=== PATIENT | male | born 1945 | race Caucasian/White ===

== ENCOUNTER → 2018-03-28 11:38 | Outpatient (CLI) | payer OTHER, SELFPAY ==
[2018-03-28 14:29] LABS: AST(SGOT) 22 U/L (15-37); Alanine Aminotransfer ALT/SGPT 29 U/L (16-61); Albumin, Serum 3.9 g/dL (3.2-5.0); Alkaline Phosphatase 241 U/L (45-117); Bilirubin, Direct 0.17 mg/dL (0.00-0.30); Cholesterol 183 mg/dL (200); Globulin 2.9 g/dL (2.2-4.2); High Density Lipoprotein 46 mg/dL; PSA,Total - Annual Screen 1.52 ng/mL (0.00-4.00); Protein, Total 6.8 g/dL (6.4-8.2); Triglycerides 162 mg/dL; Uric Acid 6.4 mg/dL (3.5-7.2); Very Low Density Lipoprotein 32 mg/dL (5-40)
== END ==
PROVIDERS: Family Provider Family Medicine; PCP Family Medicine; Referring Provider Family Medicine; Visit Provider Family Medicine
DX: E78.5 Hyperlipidemia, unspecified (principal); Z12.5 Encounter for screening for malignant neoplasm of prostate; M10.9 Gout, unspecified
CPT/HCPCS: 36415; 80061; 80076; 84153; 84550; G0103

== ENCOUNTER → 2018-08-20 08:10 | Outpatient (CLI) | payer OTHER, SELFPAY ==
[2018-08-20 08:06] VITALS: BMI 24.4
--- NOTE | 2018-08-20 08:11 | RAD_ITS ---
STUDY: X-RAY - RIGHT KNEE REASON FOR EXAM: Male, 72 years old. Pain TECHNIQUE: 4 view(s) of the knee. COMPARISON: None. FINDINGS: Normal visualized distal femur. Normal visualized proximal tibia and fibula. Normal proximal tibiofibular articulation. There is mild degenerative arthrosis of the medial femorotibial compartment. There is mild degenerative arthrosis of the lateral femorotibial compartment. There is mild degenerative arthrosis of the patellofemoral articulation. The soft tissue structures are unremarkable. RAD/Knee 4 or More Views IMPRESSION: Degenerative arthrosis. Electronically Signed: Blaine Carrero MD at 12:58 EDT , Service support ,
== END ==
PROVIDERS: Family Provider Family Medicine; PCP Family Medicine; Referring Provider Orthopaedic Surgery; Visit Provider Orthopaedic Surgery
DX: M25.561 Pain in right knee (principal)
CPT/HCPCS: 73564

== ENCOUNTER → 2019-04-12 07:00 | Outpatient (CLI) | payer OTHER, SELFPAY ==
[2018-08-20 08:06] VITALS: BMI 24.4
[2019-04-12 10:50] LABS: ALB/GLOB Ratio 1.2 RATIO (0.9-2.4); AST(SGOT) 29 U/L (15-37); Alanine Aminotransfer ALT/SGPT 32 U/L (16-61); Albumin, Serum 3.8 g/dL (3.2-5.0); Alkaline Phosphatase 232 U/L (45-117); Anion Gap 7 (5-15); BUN 16 mg/dL (7-18); BUN/Creat Ratio 16.5 RATIO (10-20); Calcium,Total 9.2 mg/dL (8.5-10.1); Chloride 107 mmol/L (98-107); Cholesterol 167 mg/dL (200); Creatinine, Serum 0.97 mg/dL (0.70-1.30); EST Glomerular Filtration Rate 81 mL/min (>60); Est Glom Filt Rate - Afr Amer 98 mL/min (>60); Globulin 3.3 g/dL (2.2-4.2); Glucose 89 mg/dL (74-106); High Density Lipoprotein 47 mg/dL; PSA,Total - Annual Screen 1.39 ng/mL (0.00-4.00); Phosphorus 2.5 mg/dL (2.5-4.9); Potassium 4.3 mmol/L (3.5-5.1); Protein, Total 7.1 g/dL (6.4-8.2); Sodium Level 142 mmol/L (136-145); Triglycerides 136 mg/dL; Uric Acid 6.9 mg/dL (3.5-7.2); Very Low Density Lipoprotein 27 mg/dL (5-40)
[2019-04-12 10:51] LABS: PTHIN 80.3 pg/mL (18.4-80.1); Vitamin D,25 Hydroxy 26.8 ng/mL (29.95-100.01)
== END ==
PROVIDERS: Family Provider Family Medicine; PCP Family Medicine; Referring Provider Family Medicine; Visit Provider Family Medicine
DX: E78.5 Hyperlipidemia, unspecified (principal); M10.9 Gout, unspecified; Z12.5 Encounter for screening for malignant neoplasm of prostate; M88.9 Osteitis deformans of unspecified bone
CPT/HCPCS: 36415; 80053; 80061; 82306; 82330; 83970; 84100; 84153; 84550; G0103

== ENCOUNTER → 2019-08-01 12:52 | Outpatient (CLI) | payer OTHER, SELFPAY ==
[2018-08-20 08:06] VITALS: BMI 24.4
--- NOTE | 2019-08-01 13:01 | BD_ITS ---
STUDY: DUAL ENERGY X-RAY ABSORPTIOMETRY / DXA REASON FOR EXAM: Male, 73 years old. Pat is 186# and 5 and quot;11 and quot; a loss of .5 and quot; per pat. Past hx of smoking. Exercises a lot. Hx of paget''s dx. TECHNIQUE: Bone Mineral Density (BMD) measurements of lumbar spine and bilateral hips were obtained. COMPARISON: None. FINDINGS: Lumbar Spine (L1-L4): g/cm2 (1.312) / T-score (0.8) / Z-score (1.3) Findings are suggestive of normal bone density with a low fracture risk. Left Femur Total: g/cm2 (0.933) / T-score (-1.2) / Z-score (-0.4) Left Femoral Neck: g/cm2 (0.890) / T-score (-1.4) / Z-score (-0.1) Right Femur Total: g/cm2 (0.900) / T-score (-1.4) / Z-score (-0.6) Right Femoral Neck: g/cm2 (0.859) / T-score (-1.6) / Z-score (-0.3) BD/Dexa Bone Density Study IMPRESSION: The patient is considered osteopenic as outlined below according to World Sadi Organization (WHO) criteria with a moderate fracture risk. Reference Information: The T-score is the number of standard deviations above or below the standard which is normal for young adults at their peak bone mineral density. The World Health Organization (WHO) interprets the T-scores as follows: Above -1 Normal bone density Between -1 and -2.5 Osteopenia Equal to / or below -2.5 Osteoporosis As a practical clinical guideline, osteopenia may be graded as follows: Mild -1 through -1.5 Moderate -1.6 through -2.0 Severe -2.1 through -2.4 The Z-score is the number of standard deviations above or below age-matched controls. A Z-score of less than -1.5 would be considered abnormal. References: 1. NIH Osteoporosis and Related Bone Diseases http://www.osteo.org 2. International Society for Clinical Densitometry http://www.iscd.org 3. National Osteoporosis Foundation http://www.nof.org Electronically Signed: Jose Romeo, at 15:44 EST , Service support ,
== END ==
PROVIDERS: PCP Family Medicine; Referring Provider Family Medicine; Visit Provider Family Medicine
DX: M88.9 Osteitis deformans of unspecified bone (principal)
CPT/HCPCS: 77080

== ENCOUNTER → 2019-11-19 07:03 | Outpatient (CLI) | payer OTHER, SELFPAY ==
[2018-08-20 08:06] VITALS: BMI 24.4
[2019-11-19 10:24] LABS: ALB/GLOB Ratio 1.1 RATIO (0.9-2.4); AST(SGOT) 26 U/L (15-37); Alanine Aminotransfer ALT/SGPT 28 U/L (16-61); Albumin, Serum 3.5 g/dL (3.2-5.0); Alkaline Phosphatase 205 U/L (45-117); Anion Gap 4 (5-15); BUN 13 mg/dL (7-18); BUN/Creat Ratio 12.4 RATIO (10-20); Calcium,Total 9.7 mg/dL (8.5-10.1); Chloride 106 mmol/L (98-107); Creatinine, Serum 1.05 mg/dL (0.70-1.30); EST Glomerular Filtration Rate 74 mL/min (>60); Est Glom Filt Rate - Afr Amer 89 mL/min (>60); Globulin 3.3 g/dL (2.2-4.2); Glucose 128 mg/dL (74-106); Phosphorus 2.3 mg/dL (2.5-4.9); Potassium 3.9 mmol/L (3.5-5.1); Protein, Total 6.8 g/dL (6.4-8.2); Sodium Level 140 mmol/L (136-145)
[2019-11-19 10:25] LABS: Vitamin D,25 Hydroxy 43.8 ng/mL
== END ==
PROVIDERS: PCP Family Medicine; Referring Provider Family Medicine; Visit Provider Family Medicine
DX: M88.9 Osteitis deformans of unspecified bone (principal)
CPT/HCPCS: 36415; 80053; 82306; 82330; 84100

== ENCOUNTER → 2020-04-15 08:16 | Outpatient (CLI) | payer OTHER, SELFPAY ==
[2020-03-20 09:22] VITALS: BMI 25.2
[2020-04-15 10:57] LABS: ALB/GLOB Ratio 1.2 RATIO (0.9-2.4); AST(SGOT) 30 U/L (15-37); Alanine Aminotransfer ALT/SGPT 31 U/L (16-61); Albumin, Serum 3.7 g/dL (3.2-5.0); Alkaline Phosphatase 229 U/L (45-117); Anion Gap 3 (5-15); BUN 17 mg/dL (7-18); Calcium,Total 9.5 mg/dL (8.5-10.1); Chloride 105 mmol/L (98-107); Cholesterol 160 mg/dL (200); EST Glomerular Filtration Rate 78 mL/min (>60); Est Glom Filt Rate - Afr Amer 94 mL/min (>60); Globulin 3.2 g/dL (2.2-4.2); Glucose 99 mg/dL (74-106); High Density Lipoprotein 50 mg/dL; Potassium 4.5 mmol/L (3.5-5.1); Protein, Total 6.9 g/dL (6.4-8.2); Sodium Level 138 mmol/L (136-145); Triglycerides 112 mg/dL; Very Low Density Lipoprotein 22 mg/dL (5-40)
== END ==
PROVIDERS: PCP Family Medicine; Referring Provider Family Medicine; Visit Provider Family Medicine
DX: E78.5 Hyperlipidemia, unspecified (principal); M10.9 Gout, unspecified
CPT/HCPCS: 36415; 80053; 80061; 84550

== ENCOUNTER 2020-10-08 16:34 | Emergency (ER) | payer OTHER, SELFPAY ==
[2020-03-20 09:22] VITALS: BMI 25.2
[2020-10-08 16:36] VITALS: BP 175/95; PULSE 65; RESP 14; TEMP 36.2; O2SAT 99; BMI 23.7
--- NOTE | 2020-10-08 17:50 | EDS_ITS ---
HPI History of Present Illness Chief Complaint: Eye Problem Informant: patient Onset/Context/Timing Location: Left Eye Onset: Days Context: Gradual Onset Timing: Continuous Current Severity: Moderate Maximum Severity: Moderate Associated Symptoms History of injury: No Narrative Narrative: The patient is a 74-year-old male with medical history significant for osteopenia who presents to the emergency department with almost complete vision loss in his left eye. He states is been going on for 2 weeks. He was actually seen at ophthalmology today. He was evaluated by Dr. Dinh we spoke with our phone. He states that his exam is consistent with temporal arteritis. He did send him over for IV steroids and lab work. He did not feel that he needs imaging. Prior similar symptoms: No Recent Illness/Hospitalization: No PFSH [facility] Medical History Dupuytren's contracture Hyperlipidemia Paget's bone disease Home Medications allopurinol 100 mg tablet 100 mg PO DAILY 08/20/18 [History Last Taken Unknown] atorvastatin 10 mg tablet 10 mg PO DAILY 03/20/20 [History Last Taken Unknown] prednisone 60 mg PO DAILY #15 tablet 10/08/20 [Rx Last Taken Unknown] Allergy/AdvReac Type Severity Reaction Status Date / Time No Known Allergies Allergy Unverified 03/20/20 09:22 Social History Smoking Status: Never smoker alcohol intake: current details: social substance use type: does not use what type of physical activity do you participate in: running frequency: daily ROS ROS ED Constitutional Constitutional ED: Denies chills or fever(s) Eyes Eyes: Reports change in vision ENT ENT ED: Denies ear pain or sore throat Cardiovascular Cardiovascular: Denies chest pain or palpitations Respiratory/Chest Respiratory/Chest: Denies cough, dyspnea or dyspnea on exertion Gastrointestinal Gastrointestinal: Denies abdominal pain, nausea or vomiting Genitourinary Genitourinary ED: Denies dysuria or urinary frequency Musculoskeletal Musculoskeletal: Denies arthralgias or myalgias Integumentary Denies rash Neurologic Neurologic: Denies headache(s) or paresthesias Psychiatric Psychiatric: Denies anxiety or depression Endocrine Endocrinology: Denies polydipsia or polyuria Allergic/Immunologic Allergic/Immunologic ED: Denies urticaria EXAM Physical Exam Const Vital Signs: 10/08/20 16:36 Temperature 97.2 F L Temperature Source Temporal Pulse Rate 65 Respiratory Rate 14 Blood Pressure 175/95 H Blood Pressure Mean 121 Pulse Ox 99 Oxygen Delivery Method Room Air Positive well nourished and well developed General Appearance ED: well developed HEENT Reports normocephalic, head/scalp atraumatic and moist mucous membranes Eyes PERRL and EOMs intact bilaterally Visual Acuity: visual acuity left eye Visual Field: peripheral vision loss and central vision loss Neck no lymphadenopathy and supple General: Negative for tenderness Chest Wall inspection of chest normal Resp normal respiratory effort and clear to auscultation bilaterally Cardio regular rate, regular rhythm and no murmurs GI normal to inspection, nondistended, normoactive bowel sounds Palpation: Negative for tender, guarding or rebound tenderness present Back/Spine no CVA tenderness Cervical Spine: Negative for cervical spine tenderness Thoracic Spine / Upper Back: Negative for thoracic spinal tenderness Extremity normal to inspection General Extremety ED: Negative for tenderness Neuro oriented x3 and CN's II-XII intact bilaterally Neuro Narrative: No focal deficits appreciated. Sensorium / Orientation: alert Psych mental status grossly normal Skin no rashes or lesions noted, no wounds and skin turgor normal MDM MDM MDM Narrative Medical decision making narrative: The patient presents due to concern for temporal arteritis. I have discussed his case with ophthalmology prior to his arrival. IV was established. Patient was immediately treated with 1 g of Solu- Medrol. ESR is not significantly elevated, but his CRP is elevated. I did discuss his results with Dr. Dinh. The plan is to keep the patient on 60 mg of prednisone. He is going to be seen in the office on Monday to start his taper and further work-up. I did senior counsel him that if his vision in his right eye changes had all that he should return immediately. The patient is comfortable with this plan of care. Impression 1. Temporal arteritis Lab Data Attestation: I reviewed the patient's lab results. Discharge Plan Triage Chief Complaint: Eye Problem ED Provider: Jann Avalos Dx/Rx/DC Orders Instructions: ED Temporal Arteritis Prescriptions: New prednisone 20 MG tablet 60 mg PO DAILY Qty: 15 RF: 0 No Action allopurinol 100 mg tablet 100 mg PO DAILY RF: 0 atorvastatin 10 mg tablet 10 mg PO DAILY RF: 0 Primary Care Provider: Ted Kwan Referrals: Ted Kwan MD [Primary Care Provider] - Giovany Dinh MD [STAFF PHYSICIAN] - 3-5 Days
[2020-10-08 18:37] VITALS: BP 137/77
[2020-10-08 18:39] LABS: Absolute Lymphocyte Count 0.87 X10^3/uL (0.83-4.51); Absolute Neutrophil Count 4.5 X10^3/uL (2.0-7.7); Basophil# 0.04 X10^3/uL; Basophil% 0.7 % (0-1); Eosinophil# 0.21 X10^3/uL; Eosinophils% 3.4 % (0-5); Hematocrit 40.9 % (40-54); Lymphocyte # 0.87 X10^3/ul (0.83-4.51); Lymphocyte % 14.2 % (19-41); Mean Corp Hgb Conc 31.8 g/dL (32-36); Mean Corpuscular Hgb 28.4 pg (27.0-32.0); Mean Corpuscular Volume 89.3 fL (80-94); Mean Platelet Vol. 10.3 fl (6.2-12.0); Monocyte# 0.52 X10^3/uL; Monocyte% 8.5 % (0-10); NRBC Flagged by Analyzer 0 % (0-5); Neutrophil # 4.47 X10^3/uL (2.7-7.7); Neutrophil % 72.9 % (47-70); Platelet Count 352 K/mm3 (150-450); RBC Distribution Width CV 12.7 % (11.6-14.6); RBC Distribution Width SD 41.5 fl (35.1-43.9); Red Blood Count 4.58 M/mm3 (4.6-6.2); White Blood Count 6.1 K/mm3 (4.4-11.0)
[2020-10-08 18:42] LABS: POSITIVE COUNT NO; POSITIVE DIFFERENTIAL NO; POSITIVE MORPHOLOGY NO
[2020-10-08 18:51] LABS: Erythrocyte Sedimentation Rate 17 mm/hr (0-20)
[2020-10-08 19:11] LABS: ALB/GLOB Ratio 0.7 RATIO (0.9-2.4); AST(SGOT) 17 U/L (15-37); Alanine Aminotransfer ALT/SGPT 19 U/L (16-61); Albumin, Serum 3.2 g/dL (3.2-5.0); Alkaline Phosphatase 183 U/L (45-117); Anion Gap 5 (5-15); BUN 14 mg/dL (7-18); BUN/Creat Ratio 16.5 RATIO (10-20); Calcium,Total 10.3 mg/dL (8.5-10.1); Chloride 103 mmol/L (98-107); Creatinine, Serum 0.85 mg/dL (0.70-1.30); EST Glomerular Filtration Rate 94 mL/min (>60); Est Glom Filt Rate - Afr Amer 113 mL/min (>60); Estimated Creatinine Clearance 84.95 ml/min; Globulin 4.3 g/dL (2.2-4.2); Glucose 85 mg/dL (74-106); Protein, Total 7.5 g/dL (6.4-8.2); Sodium Level 138 mmol/L (136-145)
== END 2020-10-08 19:54 | disposition home or self-care (01) ==
LOC: ED 18:18
PROVIDERS: Emergency Provider Emergency Medicine; PCP Family Medicine
DX: M31.6 Other giant cell arteritis (principal); M85.80 Other specified disorders of bone density and structure, unspecified site; E78.5 Hyperlipidemia, unspecified; M88.9 Osteitis deformans of unspecified bone; M72.0 Palmar fascial fibromatosis [Dupuytren]; Z79.52 Long term (current) use of systemic steroids; Z79.899 Other long term (current) drug therapy
CPT/HCPCS: 80053; 85025; 85652; 86140; 96365; 96366; 99283; J7050; A4216; J2930

== ENCOUNTER 2020-10-14 06:26 | Day surgery (SDC) | payer OTHER, SELFPAY ==
[2020-10-12 09:14] VITALS: BMI 23.7
--- NOTE | 2020-10-14 | TEM_PTH ---
PATIENT: SCOUT LEE LOC: [facility] [place] U#:[id number] AGE/SX: 75/M ROOM: RE10/14/[address]: Dr. Scooter Waite MD : 1945 BED: DIS: 10/14/2020 SPEC #: [id number] RECD: 10/14/20 12:51 STATUS: ELSA LAKESHIA #: [id number] RAVI: 10/14/20 00:[address]: Scooter Waite DEPT: SURGICAL PATHOLOGY RECD BY: Al Damon ENTERED: 10/14/20 12:53 SP TYPE: TEMPORAL OTHR DR: Dr. Diaz Kwan MD Tissues: Temporal region Procedures: Elastin Stain (control) Special Stain Group II Surgery Specimen Level IV HEADER OPERATION: Temporal artery biopsy PRE-OP DIAGNOSIS: Vision loss of left eye TISSUE SUBMITTED: Left temporal artery biopsy MICROSCOPIC DIAGNOSIS Left temporal artery, biopsy: Focal minimal changes consistent with giant cell arteritis. See microscopic description and comment. GARFIELD:chuy 10/15/2020 COMMENT The reports are reported to Dr. Waite?s office on 10/15/2020 at 10:55 a.m. Clinical correlation and appropriate follow up are necessary. MICROSCOPIC DESCRIPTION Slides are reviewed. The specimen shows medium sized blood vessels with focal minimal chronic inflammatory cell infiltrates involving intima of the vessels consisting predominantly on lymphocytes. Elastic stain with matched control is used in the evaluation of the specimen. GROSS DESCRIPTION Received in fixative is one container labeled with the patient's name and designated left temporal artery biopsy. The specimen consists of a tubular piece of fischer soft tissue measuring 2.5 cm in length and 0.2 cm in diameter. The entire specimen is submitted in one cassette. It will be sectioned at the time of embedding. / GARFIELD:chuy 10/14/20 TC:3 CPT: 02933, 19640
--- NOTE | 2020-10-14 06:30 | PCM.HP.BLA ---
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 Accompanied by: Self Is patient in pain?: No Allergies No Known Allergies Allergy (Verified 10/12/20 09:16) Medications allopurinol 100 mg tablet 100 mg PO DAILY 08/20/18 [History Confirmed 10/12/20] atorvastatin 10 mg tablet 10 mg PO DAILY 03/20/20 [History Confirmed 10/12/20] prednisone 60 mg PO DAILY #15 tablet 10/08/20 [Rx Confirmed 10/12/20] PFSH Medical History (Updated 10/12/20 @ 09:13 by Sandra Feng) Dupuytren's contracture Gout Hyperlipidemia Paget's bone disease Vision loss of left eye Surgical History (Updated 10/12/20 @ 09:13 by Sandra Feng) Hx of colonoscopy Family History Other Adopted Social History (Updated 10/12/20 @ 09:14 by Sandra Feng) adopted: Yes Smoking Status: Former smoker alcohol intake: current alcohol intake frequency: a few times a week details: social substance use type: does not use caffeine: Yes what type of physical activity do you participate in: running frequency: daily HPI HPI HPI: SCOUT LEE, is a 74 M who presents to the office today for loss of vision of the thigh. The patient reports that he started having loss of vision in his left eye and pain on the left side of his jaw with chewing as well as a headache. The patient was seen by ophthalmology and went to the emergency room and was started on steroids. The patient reports improvement in his headaches and chewing pain but he is still has loss of vision on the left side. ROS General General: No weight change, appetite, fatigue, colon cancer, breast cancer or weakness HEENT HEENT: No difficulty swallowing, eye injury, eye surgery, swollen glands or hoarseness Additional Details: Loss of vision in the left eye Endo Endocrine: No thyroid disease, diabetes mellitus, thyroid cancer, Hair loss, heat intolerance or cold intolerance Skin Skin: No rash or changing moles Musc Musculoskeletal: Yes gout; No back problems, arthritis, rheumatoid arthritis or joint pain Cardio Cardiovascular: No murmur, pacemaker, heart disease, atrial fibrillation, high blood pressure, heart attack, heart stent, palpitations, shortness of breat with exertion or chest pain Psych Psychiatric: No depression, anxiety or hearing voices Resp Respiratory: No shortness of breath, No sleep apnea, No cough, No COPD, No asthma, No emphysema and No wheezing Gastro Gastrointestinal: No abdominal pain, No nausea or vomiting, No diarrhea, No constipation, No blood in stool, No acid reflux, No hemorrhoids, No ulcers, No gallbladder problem and No black,tarry stools Guy Hematologic: No blood thinners, No blood disorders, No bleeding, No anemia and No blood clots Neuro Neurologic: No weakness Exam Const General: cooperative Orientation: alert and oriented x3 [facility] Head: normal to inspection Eyes Other: Loss of vision in the left eye Neck Neck: normal visual inspection and full ROM Chest Chest palpation & inspection: normal inspection of the chest Resp Effort & Inspection: normal respiratory effort Auscultation: clear to auscultation bilaterally Cardio Rate: regular rate Rhythm: regular rhythm GI Inspection: non-distended Palpation: soft and nontender Skin General: no rashes or lesions noted Neuro General: patient alert and patient oriented x3 Extrem General: full ROM Psych Appearance: grossly normal Mental Status: mental status grossly normal Assessment and Plan Assessment and Plan (1) Vision loss of left eye: Status: Acute Plan - Dr. Scooter Waite MD: The patient has loss of vision in the left eye as well as a history of left jaw and headaches. The left jaw pain and headaches have resolved with steroid treatment but he is still having loss of vision left eye. He was sent here for concern of temporal arteritis. I discussed left temporal artery biopsy with him. I discussed the procedure in detail as well as the risks of bleeding and infection and nerve injury. The patient understands all the risks and is 1 of proceed with left temporal artery biopsy. I will schedule him for Monday. Scooter Waite MD Pager: [facility] [address] [place] [address], [address] [place] [address] Office: I have seen and reexamined the patient and there have been no changes.
[2020-10-14 07:01] VITALS: BP 155/93; PULSE 57; RESP 16; TEMP 36.2; O2SAT 96; BMI 22.9
[2020-10-14] MEDS: Lactated Ringers 1,000 ML 100 ML IV (07:07)
[2020-10-14] MEDS: Lidocaine 1% (30 ml sdv) 30 ML Vial (08:35)
[2020-10-14 08:50] VITALS: BP 155/93; BP 165/89; PULSE 49; RESP 16; TEMP 36.2; O2SAT 99
[2020-10-14 08:55] VITALS: BP 155/93; BP 174/92; PULSE 49; RESP 16; O2SAT 99
[2020-10-14 09:00] VITALS: BP 155/93; BP 177/89; PULSE 55; RESP 16; O2SAT 99
--- NOTE | 2020-10-14 09:02 | PCM.OPRPT ---
Problems Associated Problem List Diagnoses (1) Vision loss of left eye: Report of Operation Date of Procedure: 10/14/20 Pre-Operative Diagnosis: Left temporal headache and vision loss Post-Operative Diagnosis: Same Surgery/Procedure Performed:: Left temporal artery biopsy Specimen's removed: Left temporal artery Description of Procedure: The patient was brought back to the operating room and MAC anesthesia was induced. The left temporal area was inspected with ultrasound and the temporal artery was marked. Hair was clipped. The left temporal artery was then cleaned and prepped in usual sterile fashion. The proposed incision was injected with local anesthetic. An incision was made with a scalpel and deepened to the subcutaneous tissue. Doppler was used to localize the artery. The artery was dissected free circumferentially sharply. It was dissected superiorly and inferiorly and then a small clip was placed as well as a 3-0 silk tie. The artery was then removed. There was good hemostasis. The cavity was irrigated and suctioned dry. The skin incision was closed with interrupted 4-0 Vicryl suture as well as a running Vicryl 4-0 suture. Glue was applied. Patient was then taken to PACU in stable condition. Admit VTE Documentation VTE Mechan Device Prophylaxis: SCD's
[2020-10-14 09:05] VITALS: BP 155/93; BP 185/88; PULSE 50; RESP 16; TEMP 36.8; O2SAT 99
--- NOTE | 2020-10-14 09:07 | EX.PCM.DISCH ---
Discharge Instructions Procedure Narrative: Temporal artery biopsy Diet Discharge Diet: Light diet - advance as tolerated Activity Discharge Activity: May Not Drive (While taking narcotic pain meds.) May shower in (days): 1 Lifting Restrictions: 10 pounds for 1 week Dressing / Incision Call your doctor if your incision/area has: Continuous Slow Oozing, Sudden Increased Bleeding, Increased Pain/ Swelling, Increased Redness, Foul Smelling Discharge and Swelling at the incision site Call your doctor if you observe: Fever of 101 or Higher Cleanse incision/area with: Soap & Water Follow Up Care Please Follow Up With: Scooter Waite MD When: Please call to schedule 2 week follow up appointment. [phone] Test Results: Test results from this visit will be discussed in further detail at your follow-up appointment, if applicable. Discharge Plan Admission Attending Provider: Scooter Waite Primary Care Provider: Ted Kwan Discharge Orders/Prescriptions Prescriptions: New oxycodone-acetaminophen [Percocet] 5-325 mg tablet 1 tab PO Q6H PRN (Reason: pain) 3 Days Qty: 10 RF: 0 Continued allopurinol 100 mg tablet 100 mg PO DAILY RF: 0 atorvastatin 10 mg tablet 10 mg PO DAILY RF: 0 prednisone 20 MG tablet 60 mg PO DAILY Qty: 15 RF: 0 Referrals / Follow Up: Ted Kwan MD [Primary Care Provider] - Disposition Disposition (needs filled in before D/C Order can be placed): Home, self care
[2020-10-14 09:38] VITALS: BP 155/93
== END 2020-10-14 09:40 | disposition home or self-care (01) ==
LOC: SDC 06:27 → AC 06:28
PROVIDERS: PCP Family Medicine; Visit Provider Surgery
PROC: (CPT 37609; principal; 2020-10-14 07:45)
DX: H54.62 Unqualified visual loss, left eye, normal vision right eye (principal); R51.9 Headache, unspecified; M10.9 Gout, unspecified; E78.5 Hyperlipidemia, unspecified; M88.9 Osteitis deformans of unspecified bone; M72.0 Palmar fascial fibromatosis [Dupuytren]; Z79.52 Long term (current) use of systemic steroids; Z79.899 Other long term (current) drug therapy; Z87.891 Personal history of nicotine dependence
CPT/HCPCS: 00352; 37609; 88305; 88313; J7120

== ENCOUNTER → 2020-10-16 13:45 | Outpatient (CLI) | payer OTHER, SELFPAY ==
[2020-10-08 16:36] VITALS: BMI 23.7
[2020-10-14 07:01] VITALS: BMI 22.9
--- NOTE | 2020-10-16 13:47 | ECHOD_ITS ---
Reason For Study: left eye retinal artery occlusion Procedure This was a 2D Doppler, Color Flow transthoracic echocardiogram. Exam performed in department. Left Ventricle Normal LV size. Left ventricular systolic function is normal. The estimated ejection fraction is 65 %. No evidence for diastolic dysfunction. No regional wall motion abnormalities noted. Right Ventricle Normal RV size. Normal systolic function. Atria Normal left atrium. Normal right atrium. No doppler evidence for ASD. Bubble contrast study negative for right to left interatrial shunt. Mitral Valve There is mild mitral annular calcification. Normal mitral valve. Trivial mitral valve insufficiency. Tricuspid Valve Normal tricuspid valve. Trivial tricuspid valve insufficiency. Right ventricular systolic pressure estimated to be 21 mmHg. Aortic Valve Trisinus/trileaflet aortic valve. Normal aortic valve. Trivial aortic valve insufficiency. Pulmonic Valve The pulmonic valve is not well visualized. Trivial pulmonic valve insufficiency. Great Vessels Normal sized aortic root. Pericardium/Pleural No pericardial effusion. Medication 22 gauge I.V. with prn adaptor inserted into right arm. Performed a rapid injection of agitated mix of 9 cc saline and 1cc air to assess for atrial septal defect. MMode/2D Measurements & Calculations LVIDd: 3.4 cm IVSd: 1.1 cm Ao root diam: 3.5 cm LVIDs: 2.3 cm LVPWd: 1.1 cm RVDd: 3.2 cm FS: 31.7 % LAV(MOD-bp): 47.7 ml LA A4 area: 18.2 cm2 LA dimension(2D): 3.2 cm LAV(MOD-bp) Indexed: 23.8 ml/m2 LAV(MOD-sp2): 47.8 ml LAV(MOD-sp4): 46.9 ml RA A4 area: 11.1 cm2 Time Measurements MV dec time: 0.23 sec Doppler Measurements & Calculations MV E max arvin: 61.9 cm/sec Lat Peak E' Arvin: 7.0 cm/sec Med Peak E' Arvin: 5.0 cm/sec MV A max arvin: 76.1 cm/sec E/E' lat: 8.9 E/E' med: 12.3 MV E/A: 0.81 Ao V2 max: 112.5 cm/sec LV V1 max: 109.4 cm/sec PA V2 max: 77.8 cm/sec Ao max P.1 mmHg LV V1 max P.8 mmHg TR max arvin: 214.6 cm/sec TR max P.4 mmHg ECHO/Echo Complete Interpretation Summary Left ventricular systolic function is normal. The estimated ejection fraction is 65 %. There is mild mitral annular calcification. Trivial mitral valve insufficiency. Trivial tricuspid valve insufficiency. Trivial aortic valve insufficiency. Trivial pulmonic valve insufficiency. Right ventricular systolic pressure estimated to be 21 mmHg. No evidence for diastolic dysfunction. Bubble contrast study negative for right to left interatrial shunt. Ordering Physician: Giovany Dinh Referring Physician: AISHA CLARK Performed By: Koki Tang RDCS, RVT
--- NOTE | 2020-10-16 13:48 | CDU_ITS ---
Reason For Study: RETINAL ARTERY OCCLUSION Rt. Velocities/BP Lt. Velocities/BP Prox CCA 63.8/11.6 cm/sec. Prox CCA 111.3/20.4 cm/sec. Mid CCA 69.0/16.8 cm/sec. Mid CCA 69.5/19.2 cm/sec. Dist CCA 55.9/12.9 cm/sec. Dist CCA 70.7/17.9 cm/sec. Prox ICA 48.7/13.8 cm/sec. Prox ICA 61.3/16.9 cm/sec. Mid ICA 45.9/13.8 cm/sec. Mid ICA 63.2/17.1 cm/sec. Dist ICA 53.5/19.5 cm/sec. Dist ICA 72.6/19.7 cm/sec. Rt. ICA/CCA = 53.5/69.0=0.80. Lt. ICA/CCA = 72.6/70.7=1.1. Prox ECA 159.5/17.9 cm/sec. Prox ECA 92.4/16.5 cm/sec. Rt. Vert. 22.1/6.0 cm/sec. Lt. Vert. 85.0/20.1 cm/sec. Right Extracranial There is homogeneous, smooth atherosclerotic plaque noted in the right common carotid artery. There is homogeneous, smooth atherosclerotic plaque noted in the right internal carotid artery. Antegrade flow is noted in the right vertebral artery. Left Extracranial There is homogeneous, smooth atherosclerotic plaque noted in the left common carotid artery. There is heterogeneous, smooth atherosclerotic plaque noted in the left internal carotid artery. There is homogeneous, smooth atherosclerotic plaque noted in the left external carotid artery. Antegrade flow is noted in the left vertebral artery. VL/Carotid Duplex Ultrasound Interpretation Summary Smooth plaque of the proximal right internal carotid artery with a less than 50 % stenosis. Less than 50% stenosis right external carotid artery Heterogenous smooth plaque at the proximal left internal carotid artery with le ss than 50% stenosis Less than 50% stenosis left external carotid artery Patent and antegrade vertebral arteries bilaterally Ordering Physician: Giovany Dinh Referring Physician: Diaz Kwan Performed By: Melody Garcia RDCS, RVT
== END ==
PROVIDERS: PCP Family Medicine; Referring Provider Ophthalmology; Visit Provider Ophthalmology
DX: H47.012 Ischemic optic neuropathy, left eye (principal); H34.12 Central retinal artery occlusion, left eye
CPT/HCPCS: 93306; 93880; A4216

== ENCOUNTER → 2021-11-05 | Outpatient (CLI) | payer OTHER, SELFPAY ==
[2021-11-05 10:54] LABS: AST(SGOT) 33 U/L (15-37); Alanine Aminotransfer ALT/SGPT 60 U/L (16-61); Albumin, Serum 3.8 g/dL (3.2-5.0); Alkaline Phosphatase 46 U/L (45-117); Anion Gap 5 (5-15); BUN 15 mg/dL (7-18); BUN/Creat Ratio 16.9 RATIO (10-20); Bilirubin, Direct 0.23 mg/dL (0.00-0.30); Calcium,Total 9.2 mg/dL (8.5-10.1); Chloride 105 mmol/L (98-107); Cholesterol 215 mg/dL (200); Creatinine, Serum 0.89 mg/dL (0.70-1.30); EST Glomerular Filtration Rate 89 mL/min (>60); Est Glom Filt Rate - Afr Amer 107 mL/min (>60); Globulin 2.8 g/dL (2.2-4.2); Glucose 98 mg/dL (74-106); High Density Lipoprotein 62 mg/dL; PSA,Total - Annual Screen 1.51 ng/mL (0.00-4.00); Protein, Total 6.6 g/dL (6.4-8.2); Sodium Level 141 mmol/L (136-145); Thyroid Stim Hormone (TSH) 2.56 uIU/mL (0.358-3.74); Triglycerides 161 mg/dL; Very Low Density Lipoprotein 32 mg/dL (5-40)
== END | disposition home or self-care (01) ==
PROVIDERS: PCP Family Medicine; Referring Provider Family Medicine; Visit Provider Family Medicine
DX: E78.5 Hyperlipidemia, unspecified (principal); Z12.5 Encounter for screening for malignant neoplasm of prostate; M85.80 Other specified disorders of bone density and structure, unspecified site
CPT/HCPCS: 36415; 80048; 80061; 80076; 84153; 84443; G0103

== ENCOUNTER → 2021-11-08 | Outpatient (CLI) | payer OTHER, SELFPAY ==
[2021-11-08 10:36] LABS: Vitamin D,25 Hydroxy 35.3 ng/mL
== END | disposition home or self-care (01) ==
LOC: MTLAB 07:50
PROVIDERS: PCP Family Medicine; Referring Provider Family Medicine; Visit Provider Family Medicine
DX: M85.80 Other specified disorders of bone density and structure, unspecified site (principal)
CPT/HCPCS: 36415; 82306

== ENCOUNTER → 2022-01-06 | Outpatient (CLI) | payer OTHER, SELFPAY ==
[2022-01-06 10:52] LABS: Vitamin B12 335 pg/mL (211-911)
[2022-01-06 11:22] LABS: Hemoglobin A1c 5.1 % (3.8-5.6)
[2022-01-10 21:35] LABS: VITAMIN B6 25.2 ug/L (3.4-65.2); Vitamin B1, Thiamine 131.5 nmol/L (66.5-200.0)
== END | disposition home or self-care (01) ==
LOC: MTLAB 07:44
PROVIDERS: PCP Family Medicine; Referring Provider Student in an Organized Health Care Education/Training Program; Visit Provider Student in an Organized Health Care Education/Training Program
DX: G60.8 Other hereditary and idiopathic neuropathies (principal)
CPT/HCPCS: 36415; 82607; 82746; 83036; 84207; 84425

== ENCOUNTER → 2022-12-30 | Outpatient (CLI) | payer MEDICARE, OTHER, SELFPAY ==
[2022-12-30 11:04] LABS: AST(SGOT) 37 U/L (15-37); Alanine Aminotransfer ALT/SGPT 54 U/L (16-61); Albumin, Serum 3.6 g/dL (3.2-5.0); Alkaline Phosphatase 43 U/L (45-117); Bilirubin, Direct 0.28 mg/dL (0.00-0.30); Globulin 2.4 g/dL (2.2-4.2)
== END | disposition home or self-care (01) ==
LOC: MTLAB 07:10
PROVIDERS: PCP Family Medicine; Referring Provider Internal Medicine Rheumatology; Visit Provider Internal Medicine Rheumatology
DX: R74.8 Abnormal levels of other serum enzymes (principal)
CPT/HCPCS: 36415; 80076

== ENCOUNTER → 2023-09-08 | Outpatient (CLI) | payer MEDICARE, OTHER, SELFPAY ==
[2023-09-08 12:46] LABS: AST(SGOT) 27 U/L (15-37); Alanine Aminotransfer ALT/SGPT 43 U/L (16-61); Albumin, Serum 3.6 g/dL (3.2-5.0); Alkaline Phosphatase 43 U/L (45-117); Bilirubin, Direct 0.23 mg/dL (0.00-0.30); Globulin 2.6 g/dL (2.2-4.2); Protein, Total 6.2 g/dL (6.4-8.2)
== END | disposition home or self-care (01) ==
LOC: MTLAB 10:35
PROVIDERS: PCP Family Medicine; Referring Provider Internal Medicine Rheumatology; Visit Provider Internal Medicine Rheumatology
DX: R74.8 Abnormal levels of other serum enzymes (principal)
CPT/HCPCS: 36415; 80076

== ENCOUNTER → 2023-10-27 | Outpatient (CLI) | payer MEDICARE, OTHER, SELFPAY ==
[2023-10-27 10:35] LABS: Hematocrit 47.4 % (40-54); Hemoglobin 15.6 g/dL (13.0-16.5); Mean Corp Hgb Conc 32.9 g/dL (32-36); Mean Corpuscular Hgb 30.8 pg (27.0-32.0); Mean Corpuscular Volume 93.7 fL (80-94); Mean Platelet Vol. 11.9 fl (6.2-12.0); Platelet Count 159 K/mm3 (150-450); RBC Distribution Width CV 13.1 % (11.6-14.6); RBC Distribution Width SD 44.8 fl (35.1-43.9); Red Blood Count 5.06 M/mm3 (4.6-6.2); White Blood Count 2.7 K/mm3 (4.4-11.0)
[2023-10-27 11:07] LABS: ALB/GLOB Ratio 1.4 RATIO (0.9-2.4); AST(SGOT) 36 U/L (15-37); Alanine Aminotransfer ALT/SGPT 47 U/L (16-61); Albumin, Serum 3.9 g/dL (3.2-5.0); Alkaline Phosphatase 44 U/L (45-117); Anion Gap 5 (5-15); BUN 13 mg/dL (7-18); BUN/Creat Ratio 12.4 RATIO (10-20); Calcium,Total 9.2 mg/dL (8.5-10.1); Chloride 109 mmol/L (98-107); Cholesterol 177 mg/dL (200); Creatinine, Serum 1.05 mg/dL (0.70-1.30); EST Glomerular Filtration Rate 73 mL/min (>60); Est Glom Filt Rate - Afr Amer 88 mL/min (>60); Globulin 2.7 g/dL (2.2-4.2); Glucose 104 mg/dL (74-106); High Density Lipoprotein 54 mg/dL; Potassium 4.1 mmol/L (3.5-5.1); Protein, Total 6.6 g/dL (6.4-8.2); Sodium Level 141 mmol/L (136-145); Triglycerides 129 mg/dL; Uric Acid 6.3 mg/dL (3.5-7.2); Very Low Density Lipoprotein 26 mg/dL (5-40)
== END | disposition home or self-care (01) ==
LOC: MTLAB 09:10
PROVIDERS: PCP Family Medicine; Referring Provider Family Medicine; Visit Provider Family Medicine
DX: E78.5 Hyperlipidemia, unspecified (principal); M31.5 Giant cell arteritis with polymyalgia rheumatica; M10.9 Gout, unspecified
CPT/HCPCS: 36415; 80053; 80061; 84550; 85027

== ENCOUNTER → 2024-06-12 | Outpatient (CLI) | payer MEDICARE, OTHER, SELFPAY ==
--- NOTE | 2024-06-12 09:47 | ART_ITS ---
Reason For Study: PVD Procedure A bilateral lower extremity continuous wave Doppler with analog waveform analysis,segmental pressures,and ankle brachial indexes without exercise. Left Segmental Pressures Left brachial= 152mmHg. Left posterior tibial artery = 185mmHg. Left dorsalis pedis artery = 154mmHg. Left digit = 133 mmHg. The left dorsalis pedis waveforms are triphasic. The left posterior tibial artery waveforms are triphasic. Right Segmental Pressures Right brachial= 159mmHg. Right posterior tibial artery = 205mmHg. Right dorsalis pedis artery = 164mmHg. Right digit = 147 mmHg. The right dorsalis pedis waveforms are triphasic. The right posterior tibial artery waveforms are triphasic. Indices The right ankle brachial index by the dorsalis pedis is 1.03. The right ankle brachial index by the posterior tibial artery is 1.29. The right digital-brachial index is 0.92. The left ankle brachial index by the dorsalis pedis is 0.97. The left ankle brachial index by the posterior tibial artery is 1.16. The left digital-brachial index is 0.84. VL/Lower Ext Art Exam w/o Exercis Interpretation Summary Right SANJAY 1.29, normal. TBI and Doppler/PVR waveforms of the right leg normal a t rest. Left SANJAY 1.16, normal. TBI and Doppler/PVR waveforms of the left leg normal at rest. Ordering Physician: Jann Ram Referring Physician: Diaz Kwan MD Performed By: Stacey Chou RVT
== END | disposition home or self-care (01) ==
LOC: CVS 09:40
PROVIDERS: PCP Family Medicine; Referring Provider Student in an Organized Health Care Education/Training Program; Visit Provider Student in an Organized Health Care Education/Training Program
DX: G60.8 Other hereditary and idiopathic neuropathies (principal); R60.0 Localized edema; I73.9 Peripheral vascular disease, unspecified
CPT/HCPCS: 93923

== ENCOUNTER → 2024-11-13 | Outpatient (CLI) | payer MEDICARE, OTHER, SELFPAY ==
--- OUTSIDE RECORDS SUMMARY | 2024-11-13 07:20 | XMS RPT_ITS | CCD ---
Author Organization [facility] Care Team Providers Care Gate Agent Name Role Phone Carlin Ruiz Unavailable Unavailable *SELF, REFERRED Unavailable Unavailable Aisha Kwan Unavailable Unavailable Inna Francisco Unavailable Unavailable Carlin Ruiz Unavailable Unavailable Aisha Kwan Unavailable Unavailable Aisha Kwan Unavailable Unavailmarie e Unknown, Referring Provider Unavailable Unav blaneable Aisha Kwan MD Primary Care Provider Aisha Kwan Primary Care Unavailable Simon Nunez Referring Unavailable Simon Nunez Attending Unavailable Aisha Kwan Referring Unavailable Aisha Kwan Attending Unavailable Aisha Kwan Primary Care Unavailable Aisha Kwan Primary Care Unavailable Jann Ram Referring Unavailable Jann Ram Attending Unavailable Aisha Kwan Primary Care Unavailable Wes Montelongo Attending Unavailable Jann Ram Referring Unavailable FLYNN SERNA Attending Unavailable GEM SARAVIA Referring Unavailable AISHA KWAN Primary Care UnavailGEM Arredondo Attending Unavailable AISHA KWAN Primary Care Unavailmarie e Medications Current Medications Medication Drug Class(es) Dates Sig (Normalized) Sig (Original) acetaminophen 325 mg / oxyCODONE hydrochloride 5 mg oral tablet (5 sources) Opioid Agonist Start: 2020 take 1 tablet by mouth every six hours Oxycodone-Acetamino phen (Percocet) 5-325 mg tablet Active 1 TABLET PO EVERY 6 HOURS 10 3 2020 allopurinol 100 mg oral tablet (9 sources) Xanthine Oxidase Inhibitor Start: 06-25-2015 take 1 tablet by mouth once daily allopurinol (ZYLOPRIM) 100 mg tablet Indications: Gout Take 1 tablet by mouth once daily. 90 tablet 3 06/25/2015 Active aspirin 81 mg chewable tablet (4 sources) Platelet Aggregation Inhibitor, Nonsteroidal Anti-inflammatory Drug take 1 tablet by mouth once daily aspirin 81 mg chewable tablet Take 81 mg by mouth once daily. Active atorvastatin 10 mg oral tablet (9 sources) HMG-CoA Reductase Inhibitor Start: 06-24-2016 take 1 tablet by mouth once daily atorvastatin (LIPITOR) 10 mg tablet Take 1 tablet by mouth once daily. 90 tablet 06/24/2016 Active polyethylene glycol 3350 485289 mg / potassium chloride 2970 mg / sodium bicarbonate 6740 mg / sodium chloride 5860 mg / sodium sulfate 65276 mg powder for oral solution (1 source) Osmotic Laxative Start: 05-13-2024 End: 05-13-2024 peg 3350-Electrolytes (GOLYTELY) 236-22.74-6.74 -5.86 gram suspension Indications: Encounter for screening for malignant neoplasm of colon Take 4,000 mL by mouth one time only for 1 dose. Refer to printed prep instructions from your provider. 4000 mL 05/13/2024 05/13/2024 Active predniSONE 20 mg oral tablet (5 sources) Start: 10-08-2020 take 60 mg by mouth once daily Prednisone Active 60 MG PO DAILY October 08, 2020 12:00am 10 ml tocilizumab 20 mg/ml injection (4 sources) Interleukin-6 Receptor Antagonist tocilizumab (ACTEMRA) 200 mg/10 mL (20 mg/mL) soln as directed intravenously every 4 weeks Active Problems Active Problems Problem Classification Problem Date Documented Da te Episodic/Chronic Blindness and vision defects (5 sources) Visual impairment; Translations: [Unqualified visual loss, left eye, normal vision right eye] 10-12-2020 Chronic Disorders of lipid metabolism (5 sources) Hyperlipidemia; Translations: [Hyperlipidemia, unspecified] Onset: 11-03-2023 12-14-2023 Chronic Gout and other crystal arthropathies (9 sources) Gout; Translations: [Gout, unspecified] Onset: 11-30-2005 10-12-2020 Chronic Hemorrhoids (4 sources) Hemorrhoids; Translations: [Unspecified hemorrhoids] 12-14-2023 Episodic Other and unspecified benign neoplasm (1 source) History of polyp of colon; Translations: [History of colonic polyps] 05-10-2024 Episodic Other bone disease and musculoskeletal deformities (9 sources) Osteitis deformans; Translations: [Osteitis deformans of unspecified bone] Onset: 03-26-2012 03-20-2020 Chronic Other bone disease and musculoskeletal deformities (4 sources) X-ray evidence of poor mineralization; Translations: [Other specified disorders of bone density and structure, unspecified site] Episodic Other bone disease and musculoskeletal deformities (1 source) Osteopenia; Translations: [Other specified disorders of bone density and structure, unspecified site] 03-20-2020 Episodic Other connective tissue disease (4 sources) Contracture of palmar fascia; Translations: [Palmar fascial fibromatosis [Dupuytren]] 12-14-2023 Episodic Other nervous system disorders (1 source) Other hereditary and idiopathic neuropathies; Translations: [Other hereditary and idiopathic neuropathies] Onset: 07-05-2024 Chronic Other screening for suspected conditions (not mental disorders or infectious disease) (3 sources) Patient encounter status; Translations: [Encounter for screening for malignant neoplasm of colon] Onset: 06-28-2024 05-10-2024 Episodic Residual codes; unclassified (5 sources) History of colonoscopy; Translations: [Other specified postprocedural states] 10-12-2020 Episodic Unclassified (1 source) History of colonic polyps; Translations: [History of colonic polyps] Onset: 06-28-2024 Past or Other Problems Problem Classification Problem Date Documented Da te Episodic/Chronic Other liver diseases (1 source) Abnormal levels of other serum enzymes; Translations: [Abnormal levels of other serum enzymes] Onset: 09-13-2023 Episodic Results Test Name Value Interpretation Reference Range Facility [facility] ----- SCOUT COTA ([id number]) 1945 M Date Time Provider Department 07/03/24 FLYNN SERNA During your visit today, we recorded the following information about you: Flynn Serna MD 07/03/2024 5:39 AM Signed FOLLOW UP ENDOSCOPY - RESULTS AND RECOMMENDATIONS NAME: Scout Cota CLINIC NO.: [id number] : 1945 DATE: July 03, 2024 PRIMARY CARE PROVIDER: Aisha Kwan MD Scout Cota is a patient referred for endoscopy for screening colonoscopy with a personal history of polyps. I performed lower endoscopy on June 28, 2024. The patient was found to have: Lower Endoscopy Impression: - Two small (4-6 mm) polyps in the proximal transverse colon and in the ascending colon, removed with a cold biopsy forceps. Resected and retrieved. - The examination was otherwise normal on direct and retroflexion views. Pathology demonstrated: FINAL DIAGNOSIS A. Colon, ascending polyp, biopsy: - Colonic mucosa with no diagnostic abnormalities. B. Colon, transverse polyp, biopsy: - Fragments of tubular adenoma. IMPRESSION: small tubular adenoma PLAN: INSTRUCTIONS FOLLOWING A POLYP FOUND AT COLONOSCOPY You were found to have an adenomatous colon polyp. I recommend you undergo repeat endoscopy in 5 years. If you note bleeding, change in bowel habits, or other suspicious colon related symptoms before that time, those symptoms should be evaluated as necessary. If you have any difficulties or concerns, you should contact our office immediately. The patient is instructed to follow-up with your primary care provider if needed I have instructed my staff to forward the above information to the patient and to the appropriate providers Azul Clarke RN 07/03/2024 1:58 PM Signed Spoke with patient and reviewed information per provider. Patient verbalized understanding. No further questions at this time. Advised to call if any future problems or concerns. Provider message noted. Encounter closed. Allergies As of Date: 07/03/2024 (No Known Allergies) Date Reviewed: 06/28/2024 Reviewed by: Jeremiah Pires RN - Fully Assessed Reason for Visit: Results [95] Prescriptions as of 07/03/2024 - tocilizumab (ACTEMRA) 200 mg/10 mL (20 mg/mL) soln as directed intravenously every 4 weeks - aspirin 81 mg chewable tablet Take 81 mg by mouth once daily. - atorvastatin (LIPITOR) 10 mg tablet Take 1 tablet by mouth once daily. - allopurinol (ZYLOPRIM) 100 mg tablet Take 1 tablet by mouth once daily. 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 Author Type: Registered Nurse Type: [id number] Filed: 06/28/2024 10:30 Note Text: The patient received a copy of Colonoscopy discharge instructions that contain information for how to contact the physician who performed the procedure and when to seek medical care. Normal [facility] Colonoscopyon 06-28-2024 Colonoscopy [facility] Gastrointestinal Endoscopy Patient Name: Scout Cota Procedure Date: 06/28/2024 9:26 AM Date of : 1945 Admit Type: Outpatient Age: 78 Gender: Male Note Status: Finalized Procedure: Colonoscopy Indications: High risk colon cancer surveillance: Personal history of colonic polyps Providers: Flynn Serna MD Patient Profile: This is a 78 year old male. Refer to note in patient chart for documentation of history and physical. Last Colonoscopy: 5 years ago. Referring Physician: Gem Saravia (Referring MD) Medicines: Fentanyl 75 micrograms IV, Midazolam 4 mg IV Complications: No immediate complications. Requesting Provider: Procedure: Pre-Anesthesia Assessment: - Prior to the procedure, a History and Physical was performed, and patient medications and allergies were reviewed. The patient is competent. The risks and benefits of the procedure and the sedation options and risks were discussed with the patient. All questions were answered and informed consent was obtained. Patient identification and proposed procedure were verified by the physician and the nurse in the procedure room. Mental Status Examination: normal. Airway Examination: normal oropharyngeal airway and neck mobility. Respiratory Examination: clear to auscultation. CV Examination: normal. Prophylactic Antibiotics: The patient does not require prophylactic antibiotics. Prior Anticoagulants: The patient has taken no anticoagulant or antiplatelet agents. ASA Grade Assessment: II - A patient with mild systemic disease. After reviewing the risks and benefits, the patient was deemed in satisfactory condition to undergo the procedure. The anesthesia plan was to use moderate sedation / analgesia (conscious sedation). Immediately prior to administration of medications, the patient was re-assessed for adequacy to receive sedatives. The heart rate, respiratory rate, oxygen saturations, blood pressure, adequacy of pulmonary ventilation, and response to care were monitored throughout the procedure. The physical status of the patient was re-assessed after the procedure. After I obtained informed consent, the scope was passed under direct vision. Throughout the procedure, the patient's blood pressure, pulse, and oxygen saturations were monitored continuously. The Colonoscope was introduced through the anus and advanced to the cecum, identified by the appendiceal orifice, ileocecal valve and palpation. The colonoscopy was performed without difficulty. The patient tolerated the procedure well. The quality of the bowel preparation was good. The ileocecal valve, appendiceal orifice, and rectum were photographed. Moderate Sedation: Moderate (conscious) sedation was personally administered by the endoscopist. The following parameters were monitored: oxygen saturation, heart rate, blood pressure, and response to care. Total physician intraservice time was 28 minutes. The administration of moderate sedation was initiated at 09:41. Findings: The perianal and digital rectal examinations were normal. Two sessile polyps were found in the proximal transverse colon and ascending colon. The polyps were small (4-6 mm) in size. These polyps were removed with a cold biopsy forceps. Resection and retrieval were complete. The exam was otherwise without abnormality on direct and retroflexion views. Impression: - Two small (4-6 mm) polyps in the proximal transverse colon and in the ascending colon, removed with a cold biopsy forceps. Resected and retrieved. - The examination was otherwise normal on direct and retroflexion views. Recommendation: - Discharge patient to home. - Resume previous diet. - Continue present medications. - Telephone my office for pathology results in 1 week. - Patient has a contact number available for emergencies. The signs and symptoms of potential delayed complications were discussed with the patient. Return to normal activities tomorrow. Written discharge instructions were provided to the patient. - Repeat colonoscopy is recommended. The colonoscopy date will be determined based on pathology results from today's exam and current guidelines. Procedure Code(s): --- Professional --- 80307, Colonoscopy, flexible; with biopsy, single or multiple G0500, Moderate sedation services provided by the same physician or other qualified health school child care attendant performing a gastrointestinal endoscopic service that sedation supports, requiring the presence of an independent trained observer to assist in the monitoring of the patient's level of consciousness and physiological status; initial 15 minutes of intra-service time; patient age 5 years or older (additional time may be reported with 19773, as appropriate) 18170, Moderate sedation; each additional 15 minutes intraservice time CPT copyright 2020 [place] (more content not included)... Normal [facility] HISTORY PHYSICALon HISTORY PHYSICAL HNO ID: [id number] Author: FLYNN SERNA MD Service: General Surgery Author Type: Physician Type: H&P Filed: 06/28/2024 08:35 Note Text: HISTORY AND PHYSICAL Scout Cota : 1945 REFERRING PHYSICIAN: No referring provider defined for this encounter. CHIEF COMPLAINT: Patient presents with: Consult: colonoscopy HPI: Scout is a 78 year old male referred for endoscopy. Scout notes due for screening colonoscopy- history of polyps (2018). Scout denies abdominal pain.. Scout denies diarrhea. Scout denies constipation. Scout denies a change in bowel habits. Scout denies melena. Scout denies bright red blood per rectum. Scout denies hemorrhoids. Scout denies heartburn. Scout denies dysphagia. Scout denies a history of ulcers/ peptic ulcer disease. Scout denies family history of colon issues. Scout's medical history is significant for giant cell arteritis with polymyalgia rheumatica. He gets monthly Actemra infusions. Follow[facility]. Scout has undergone prior endoscopy. Last colonoscopy was 08/[address] Noriega at [facility]. Sedation: Midazolam 5 mg IV, Fentanyl 100 micrograms IV Impression: - Diverticulosis in the sigmoid colon. - Non-bleeding internal hemorrhoids. - One 5 to 10 mm polyp in the ascending colon, removed with a cold biopsy forceps. Resected and retrieved. CONVERTED FINAL DIAGNOSIS Right colon, polyp, biopsy - Sessile serrated polyp. ANUJA/eeh 08/24/2018 CURRENT MEDICATIONS Current Outpatient Medications Medication Sig tocilizumab (ACTEMRA) 200 mg/10 mL (20 mg/mL) soln as directed intravenously every 4 weeks aspirin 81 mg chewable tablet Take 81 mg by mouth once daily. atorvastatin (LIPITOR) 10 mg tablet Take 1 tablet by mouth once daily. allopurinol (ZYLOPRIM) 100 mg tablet Take 1 tablet by mouth once daily. peg 3350-Electrolytes (GOLYTELY) 236-22.74-6.74 -5.86 gram suspension Take 4,000 mL by mouth one time only for 1 dose. Refer to printed prep instructions from your provider. No current facility-administered medications for this visit. ALLERGIES: Patient has no known allergies. 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 hemipelvis-asymptomatic PAST SURGICAL HISTORY PAST SURGICAL HISTORY Procedure Laterality Date COLONOSCOPY FLX DX W/COLLJ SPEC WHEN PFRMD 06/13/2008 Colonoscopy COLONOSCOPY FLX DX W/COLLJ SPEC WHEN PFRMD 08/23/2018 Colonoscopy PAST SURGICAL HISTORY OF right hand surgery FAMILY HISTORY FAMILY HISTORY Adopted: Yes Problem Relation Age of Onset other (adopted) Other family hx is unknown SOCIAL HISTORY Social History Tobacco Use Smoking status: Former Current packs/day: 1.00 Average packs/day: 1 pack/day for 5.0 years (5.0 ttl pk-yrs) Types: Cigarettes Smokeless tobacco: Never Tobacco comments: quit at age 24 Vaping Use Vaping status: Never Used Substance Use Topics Alcohol use: Yes Comment: occasionally Drug use: No REVIEW OF SYMPTOMS: The review of systems data was entered by the nurse and reviewed by ny Nursing Notes: Ana Dunham RN 05/13/2024 8:33 AM Signed REVIEW OF SYSTEMS: General: The patient denies fatigue, denies weight loss, denies weight gain, denies feeling hot, and denies feelings of cold. Eyes: The patient denies glaucoma, denies eye injury/surgery, does not wear glasses or contacts. Ear/Nose/Throat: The patient denies allergies, denies hayfever, denies ear infections, and denies bloody noses. Cardiovascular: The patient denies chest pain, denies heart disease, denies high blood pressure,denies cardiac stent, denies prior heart attack, denies irregular heart beat, NOTES high cholesterol, denies poor circulation, denies heart failure, other cardiac issues, denies claudication, denies cold feet, denies peripheral arterial stent. Respiratory: The patient denies tuberculosis, denies pneumonia, denies frequent cough, denies pulmonary embolism, denies shortness of breath, and denies coughing up blood. Gastrointestinal: The patient denies difficulty swallowing, denies acid reflux, denies ulcers, denies vomiting, denies jaundice/hepatitis, denies gallbladder problems, denies black or tarry stools, NOTES hemorrhoids, denies bleeding from rectum, denies diverticulitis, denies constipation, denies diarrhea, denies loss of stool control, and denies hernias. Kidney/Bladder: The patient denies kidney stones, denies urine infections, and denies bloody urine. Skin: The patient denies a history of skin cancer, denies bleeding/changing moles, and denies a history of skin rash. Neurologic: The patient denies a history of epilepsy/convulsions, denies headaches, denies head/spinal injuries, and denies stroke/TIA. Psych (more content not included)... Normal [facility] SURGICAL PATHOLOGYon 025 CASE REPORT Normal [facility] Comment on above: Order Comment: Speci men Type: TISSUE SPECIMEN Ordering Facility: [facility] Address: [address] [place] [address] Result Comment: Surg ica Pathology Report Case: [id number] Authorizing Provider: Flynn Serna MD Collected: 06/28/2024 09:55 AM Ordering Location: Ambulatory Surgery Received: 06/28/2024 01:21 PM Pathologist: Jann Mi MD Specimens: A) - Colon, Ascending Polyp B) - Colon, Transverse, Polyp, proximal transverse polyp Performed By: #### S #### [facility] CLIA [id number] [address] [place] [address] [place] [facility] CLIA [id number] [address] [place], [place] [address] OF [facility] FINAL DIAGNOSIS Normal [facility] Comment on above: Order Comment: Speci men Type: TISSUE SPECIMEN Ordering Facility: [facility] Address: [address] [place] [address] Result Comment: A. C olon, ascending polyp, biopsy: - Colonic mucosa with no diagnostic abnormalities. B. Colon, transverse polyp, biopsy: - Fragments of tubular adenoma. Performed By: #### S #### [facility] CLIA [id number] [address] [place] [address] [place] [facility] CLIA [id number] [address] [place] [address] [place] [facility] Normal [facility] Comment on above: Order Comment: Speci men Type: TISSUE SPECIMEN Ordering Facility: [facility] Address: [address] [place] [address] Result Comment: Diag nostic interpretation performed at: [facility], [address] [place] [address] CLIA# [id number] [employer] Maker: Luis Denise MD Performed By: #### S #### [facility] CLIA [id number] [address] [place] [address] [place] [facility] CLIA [id number] [address] [place] [address] [place] [facility] Normal [facility] Comment on above: Order Comment: Speci men Type: TISSUE SPECIMEN Ordering Facility: [facility] Address: [address] [place] [address] Result Comment: A. C olon, Ascending Polyp Received in formalin is one piece of fischer, soft tissue measuring 0.3 x 0.2 x 0.2 cm. Totally submitted in one cassette. B. Colon, Transverse, Polyp Received in formalin are multiple pieces of fischer and fischer-brown, soft tissue aggregating to 0.6 x 0.5 x 0.2 cm. Totally submitted in one cassette. JCDM June 28, 2024 8:47 PM Gross examination performed at [facility], [address] [place] [address] Performed By: #### S #### [facility] CLIA [id number] [address] [place] [address] [place] [facility] CLIA [id number] [address] [place] [address] OF [facility] Lower Ext Art Exam w/o Exerc marc 06-12-2024 Lower Ext Art Exam w/o Exercis [facility] [place] [address] Lower Ext Art Exam w/o Exercis 06/12/24 0949 MR#: [id number] Acct: [id number] Name: SCOUT COTA Rep #: [id number] : 1945 78 From: Wes Montelongo MD Attending Dr: Jann Ram DPM Status: REG CLI Ordering Dr: Jann Ram DPM Date: 06/12/24 Location: [facility] Sex: M C Admitted: Reason For Study: PVD Procedure A bilateral lower extremity continuous wave Doppler with analog waveform analysis,segmental pressures,and ankle brachial indexes without exercise. Left Segmental Pressures Left brachial= 152mmHg. Left posterior tibial artery = 185mmHg. Left dorsalis pedis artery = 154mmHg. Left digit = 133 mmHg. The left dorsalis pedis waveforms are triphasic. The left posterior tibial artery waveforms are triphasic. Right Segmental Pressures Right brachial= 159mmHg. Right posterior tibial artery = 205mmHg. Right dorsalis pedis artery = 164mmHg. Right digit = 147 mmHg. The right dorsalis pedis waveforms are triphasic. The right posterior tibial artery waveforms are triphasic. Indices The right ankle brachial index by the dorsalis pedis is 1.03. The right ankle brachial index by the posterior tibial artery is 1.29. The right digital-brachial index is 0.92. The left ankle brachial index by the dorsalis pedis is 0.97. The left ankle brachial index by the posterior tibial artery is 1.16. The left digital-brachial index is 0.84. VL/Lower Ext Art Exam w/o Exercis Interpretation Summary Right SANJAY 1.29, normal. TBI and Doppler/PVR waveforms of the right leg normal at rest. Left SANJAY 1.16, normal. TBI and Doppler/PVR waveforms of the left leg normal at rest. ___ Ordering Physician: Jann Ram Referring Physician: Aisha Kwan MD Performed By: Stacey Chou Bebeto 06/12/24 1513 Date Wes Montelongo MD CC: EMBER Ram; Dr. Aisha Kwan MD Date Dictated: 06/12/2449 Date Transcribed: 06/12/241512 Pet House Sitter: Signed [facility] 05-13-2024 [facility] Office Visit (GENSWS ) ----- BEATASCOUT Wagner ([id number]) 1945 Date Time Provider Department 05/13/24 8:30 AM GEM SARAVIA During your visit today, we recorded the following information about you: Temperature Pulse Blood pressure Weight 97.2 degrees 72/minute 124/82 89.4 kg Height 1.829 m Gem Saravia APRN.MANAGER SURGERY 05/13/2024 8:56 AM Signed HISTORY AND PHYSICAL Scout Cota : 1945 REFERRING PHYSICIAN: No referring provider defined for this encounter. CHIEF COMPLAINT: Patient presents with: Consult: colonoscopy HPI: Scout is a 78 year old male referred for endoscopy. Scout notes due for screening colonoscopy- history of polyps (2019). Scout denies abdominal pain.. Scout denies diarrhea. Scout denies constipation. Scout denies a change in bowel habits. Scout denies melena. Scout denies bright red blood per rectum. Scout denies hemorrhoids. Scout denies heartburn. Scout denies dysphagia. Scout denies a history of ulcers/ peptic ulcer disease. Scout denies family history of colon issues. Scout's medical history is significant for giant cell arteritis with polymyalgia rheumatica. He gets monthly Actemra infusions. Follows with [facility]. Scout has undergone prior endoscopy. Last colonoscopy was 08/[address] Noriega at [facility]. Sedation: Midazolam 5 mg IV, Fentanyl 100 micrograms IV Impression: - Diverticulosis in the sigmoid colon. - Non-bleeding internal hemorrhoids. - One 5 to 10 mm polyp in the ascending colon, removed with a cold biopsy forceps. Resected and retrieved. CONVERTED FINAL DIAGNOSIS Right colon, polyp, biopsy - Sessile serrated polyp. [facility] 08/24/2018 Current Outpatient Medications Medication Sig tocilizumab (ACTEMRA) 200 mg/10 mL (20 mg/mL) soln as directed intravenously every 4 weeks aspirin 81 mg chewable tablet Take 81 mg by mouth once daily. atorvastatin (LIPITOR) 10 mg tablet Take 1 tablet by mouth once daily. allopurinol (ZYLOPRIM) 100 mg tablet Take 1 tablet by mouth once daily. peg 3350-Electrolytes (GOLYTELY) 236-22.74-6.74 -5.86 gram suspension Take 4,000 mL by mouth one time only for 1 dose. Refer to printed prep instructions from your provider. No current facility-administered medications for this visit. ALLERGIES: Patient has no known allergies. 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 hemipelvis-asymptomatic PAST SURGICAL HISTORY Procedure Laterality Date COLONOSCOPY FLX DX W/COLLJ SPEC WHEN PFRMD 06/13/2008 Colonoscopy COLONOSCOPY FLX DX W/COLLJ SPEC WHEN PFRMD 08/23/2018 Colonoscopy PAST SURGICAL HISTORY OF right hand surgery FAMILY HISTORY Adopted: Yes Problem Relation Age of Onset other (adopted) Other family hx is unknown Social History Tobacco Use Smoking status: Former Current packs/day: 1.00 Average packs/day: 1 pack/day for 5.0 years (5.0 ttl pk-yrs) Types: Cigarettes Smokeless tobacco: Never Tobacco comments: quit at age 24 Vaping Use Vaping status: Never Used Substance Use Topics Alcohol use: Yes Comment: occasionally Drug use: No REVIEW OF SYMPTOMS: The review of systems data was entered by the nurse and reviewed by me Nursing Notes: Ana Dunham RN 05/13/2024 8:33 AM Signed REVIEW OF SYSTEMS: General: The patient denies fatigue, denies weight loss, denies weight gain, denies feeling hot, and denies feelings of cold. Eyes: The patient denies glaucoma, denies eye injury/surgery, does not wear glasses or contacts. Ear/Nose/Throat: The patient denies allergies, denies hayfever, denies ear infections, and denies bloody noses. Cardiovascular: The patient denies chest pain, denies heart disease, denies high blood pressure,denies cardiac stent, denies prior heart attack, denies irregular heart beat, NOTES high cholesterol, denies poor circulation, denies heart failure, other cardiac issues, denies claudication, denies cold feet, denies peripheral arterial stent. Respiratory: The patient denies tuberculosis, denies pneumonia, denies frequent cough, denies pulmonary embolism, denies shortness of breath, and denies coughing up blood. Gastrointestinal: The patient denies difficulty swallowing, denies acid reflux, denies ulcers, denies vomiting, denies jaundice/hepatitis, denies gallbladder problems, denies black or tarry stools, NOTES hemorrhoids, denies bleeding from rectum, denies diverticulitis, denies constipation, denies diarrhea, denies loss of stool control, and denies hernias. Kidney/Bladder: The patient denies kidney stones, denies urine infections, and denies bloody urine. Skin: The patient denies a history of skin cancer, denies bleeding/changi (more content not included)... Normal [facility] [place] 05-13-2024 CNPN Telephone ([facility]) ----- SCOUT COTA ([id number]) 1945 Date Time Provider Department 05/13/24 GEM SARAVIA During your visit today, we recorded the following information about you: Daryl Hidalgo 05/13/2024 2:43 PM Addendum 06-28-2024 [facility], provider went over all prep instructions, Patient has direct number to call if he has any questions Daryl Elena 07/05/2024 8:52 AM Signed patient was never scheduled for a follow up after procedure. Dimitri melgoza called asking when patient should have next colonoscopy. Once I have the recommendation I will call and let PCP office know at [phone] Option 2 Do you want patient to come into the office to go over path? Daryl Hidalgo 07/05/2024 10:19 AM Signed contacted Dimitri melgoza and provided time for next colonoscopy; 5 years or sooner if patients has any issues or changes in bowel habits. Allergies As of Date: 05/13/2024 (No Known Allergies) Date Reviewed: 05/13/2024 Reviewed by: Gem Saravia APRN.MANAGER SURGERY - Fully Assessed Reason for Visit: 06-29-2024 [facility] [Other] Prescriptions as of 07/10/2024 - tocilizumab (ACTEMRA) 200 mg/10 mL (20 mg/mL) soln as directed intravenously every 4 weeks - aspirin 81 mg chewable tablet Take 81 mg by mouth once daily. - atorvastatin (LIPITOR) 10 mg tablet Take 1 tablet by mouth once daily. - allopurinol (ZYLOPRIM) 100 mg tablet Take 1 tablet by mouth once daily. Problem List As Of Date 05/13/2024 Noted Resolved HYPERLIPIDEMIA NEC/NOS [E78.5] HEMORRHOIDS NOS [K64.9] CONTRACTED PALMAR FASCIA [M72.0] GOUT NOS [M10.9] 11/30/2005 Paget disease of bone [M88.9] 03/26/2012 Encounter Status:Closed by DARYL HIDALGO on 07/10/24 Normal [facility] CBC-Complete Blood Cnt No Di ffon 10-27-2023 Erythrocyte distribution width (RBC) [Ratio] 13.1 % Normal 11.6-14.6 [facility] Comment on above: Order Comment: Order Date: 10/11/23 Order Info: [id number] - CBC Performed By: #### L 100.0500, L500.4050 #### [facility] [address] [place], [address] Hematocrit (Bld) [Volume fraction] 47.4 % Normal 40-54 [facility] Comment on above: Order Comment: Order Date: 10/11/23 Order Info: [id number] - CBC Performed By: #### L 100.0500, L500.4050 #### [facility] [address] [place], [address] Hemoglobin (Bld) [Mass/Vol] 15.6 g/dL Normal 13.0-16.5 [facility] Comment on above: Order Comment: Order Date: 10/11/23 Order Info: [id number] - CBC Performed By: #### L 100.0500, L500.4050 #### [facility] [address] [place], [address] MCH (RBC) [Entitic mass] 30.8 pg Normal 27.0-32.0 [facility] Comment on above: Order Comment: Order Date: 10/11/23 Order Info: [id number] - CBC Performed By: #### L 100.0500, L500.4050 #### [facility] [address] [place], [address] MCHC (RBC) [Mass/Vol] 32.9 g/dL Normal 32-36 [facility] Comment on above: Order Comment: Order Date: 10/11/23 Order Info: [id number] - CBC Performed By: #### L 100.0500, L500.4050 #### [facility] [address] [place], [address] MCV (RBC) [Entitic vol] 93.7 fL Normal 80-94 [facility] Comment on above: Order Comment: Order Date: 10/11/23 Order Info: [id number] - CBC Performed By: #### L 100.0500, L500.4050 #### [facility] [address] [place], [address] Platelet mean volume (Bld) [Entitic vol] 11.9 fL Normal 6.2-12.0 [facility] Comment on above: Order Comment: Order Date: 10/11/23 Order Info: [id number] - CBC Performed By: #### L 100.0500, L500.4050 #### [facility] [address] [place], [address] Platelets (Bld) [#/Vol] 159 10*3/uL Normal 150-450 [facility] Comment on above: Order Comment: Order Date: 10/11/23 Order Info: [id number] - CBC Performed By: #### L 100.0500, L500.4050 #### [facility] [address] [place], [address] RBC (Bld) [#/Vol] 5.06 10*6/uL Normal 4.6-6.[address] [facility] Comment on above: Order Comment: Order Date: 10/11/23 Order Info: [id number] - CBC Performed By: #### L 100.0500, L500.4050 #### [facility] [address] [place], [address] RDW SD 44.8 fl High 35.1-43.9 [facility] Comment on above: Order Comment: Order Date: 10/11/23 Order Info: [id number] - CBC Performed By: #### L 100.0500, [id number] #### [facility] [address] [place], [address] WBC (Bld) [#/Vol] 2.7 10*3/uL Low 4.4-11.0 [facility] Comment on above: Order Comment: Order Date: 10/11/23 Order Info: [id number] - CBC Performed By: #### L 100.0500, [id number] #### [facility] [address] [place], [address] Comprehensive Metabolic Prof ilon 10-27-2023 Albumin [Mass/Vol] 3.9 g/dL Normal 3.2-5.0 [facility] Comment on above: Order Comment: Order Date: 10/11/23 Order Info: [id number] - CMP Order Info: [id number] - LIPID Order Info: [id number] - URIC Performed By: #### L 100.0500, L500.4050 #### [facility] [address] [place], [address] Albumin/Globulin [Mass ratio] 1.4 {ratio} Normal 0.9-2.4 [facility] Comment on above: Order Comment: Order Date: 10/11/23 Order Info: [id number]- - CMP Order Info: - LIPID Order Info: [id number] - URIC Performed By: #### L 100.0500, L500.4050 #### [facility] [address] [place], [address] ALK P 44 U/L Low 45-117 [facility] Comment on above: Order Comment: Order Date: 10/11/23 Order Info: [id number] - CMP Order Info: [id number] - LIPID Order Info: [id number] - URIC Performed By: #### L 100.0500, L500.4050 #### [facility] [address] [place], [address] ALT [Catalytic activity/Vol] 47 U/L Normal 16-61 [facility] Comment on above: Order Comment: Order Date: 10/11/23 Order Info: [id number] - CMP Order Info: [id number] - LIPID Order Info: [id number] - URIC Performed By: #### L 100.0500, L500.4050 #### [facility] [address] [place], [address] AST [Catalytic activity/Vol] 36 U/L Normal 15-37 [facility] Comment on above: Order Comment: Order Date: 10/11/23 Order Info: [id number]- - CMP Order Info: - LIPID Order Info: [id number] - URIC Performed By: #### L 100.0500, L500.4050 #### [facility] [address] [place], [address] Bilirubin [Mass/Vol] 1.30 mg/dL High 0.20-1.00 [facility] Comment on above: Order Comment: Order Date: 10/11/23 Order Info: [id number]- - CMP Order Info: - LIPID Order Info: [id number] - URIC Result Comment: For patients on eltrombopag therapy, use of Dimension [place] TBIL is not recommended. Performed By: #### L 100.0500, L500.4050 #### [facility] [address] [place], [address] BUN/CRE 12.4 RATIO Normal 10-20 [facility] Comment on above: Order Comment: Order Date: 10/11/23 Order Info: [id number] - CMP Order Info: - LIPID Order Info: [id number] - URIC Performed By: #### L 100.0500, [id number] #### [facility] [address] [place], [address] CA,Total 9.2 mg/dL Normal 8.5-10.1 [facility] Comment on above: Order Comment: Order Date: 10/11/23 Order Info: [id number] - CMP Order Info: - LIPID Order Info: [id number] - URIC Performed By: #### L 100.0500, L500.4050 #### [facility] [address] [place], [address] Chloride [Moles/Vol] 109 mmol/L High 98-107 [facility] Comment on above: Order Comment: Order Date: 10/11/23 Order Info: [id number] - CMP Order Info: - LIPID Order Info: [id number] - URIC Performed By: #### L 100.0500, [id number] #### [facility] [address] [place], [address] CO2 [Moles/Vol] 27.0 mmol/L Normal 21.0-32.0 [facility] Comment on above: Order Comment: Order Date: 10/11/23 Order Info: [id number] - CMP Order Info: - LIPID Order Info: [id number] - URIC Performed By: #### L 100.0500, L500.4050 #### [facility] [address] [place], [address] Creatinine [Mass/Vol] 1.05 mg/dL Normal 0.70-1.30 [facility] Comment on above: Order Comment: Order Date: 10/11/23 Order Info: [id number] - CMP Order Info: - LIPID Order Info: [id number] - URIC Result Comment: The validity of the calculated GFR GFRAA in patients over 70 years has not been determined. Clinical correlation is essential. Performed By: #### L 100.0500, L500.4050 #### [facility] [address] [place], [address] EST GFR - AA 88 mL/min Normal >60 [facility] Comment on above: Order Comment: Order Date: 10/11/23 Order Info: [id number] - CMP Order Info: - LIPID Order Info: [id number] - URIC Result Comment: Afri can [place] GFR Calc Performed By: #### L 100.0500, L500.4050 #### [facility] [address] [place], [address] GAP 5 Normal 5-15 [facility] Comment on above: Order Comment: Order Date: 10/11/23 Order Info: [id number] - CMP Order Info: - LIPID Order Info: [id number] - URIC Performed By: #### L 100.0500, L500.4050 #### [facility] [address] [place], [address] GFR/1.73 sq M.predicted among non-blacks MDRD (S/P/Bld) [Vol rate/Area] 73 mL/min/{1.73_m2} Normal >60 [facility] Comment on above: Order Comment: Order Date: 10/11/23 Order Info: [id number] - CMP Order Info: [id number] - LIPID Order Info: [id number] - URIC Result Comment: Non- GFR Calc Performed By: #### L 100.0500, L500.4050 #### [facility] [address] [place], [address] Globulin (S) [Mass/Vol] 2.7 g/dL Normal 2.2-4.2 [facility] Comment on above: Order Comment: Order Date: 10/11/23 Order Info: [id number] - CMP Order Info: [id number] - LIPID Order Info: [id number] - URIC Performed By: #### L 100.0500, L500.4050 #### [facility] [address] [place], [address] Glucose [Mass/Vol] 104 mg/dL Normal 74-106 [facility] Comment on above: Order Comment: Order Date: 10/11/23 Order Info: [id number]- - CMP Order Info: [id number] - LIPID Order Info: [id number] - URIC Result Comment: Fast ing Glucose result from 100 to 125 mg/dL suggests IMPAIRED HOMEOSTASIS per A.D.A. criteria. Performed By: #### L 100.0500, L500.4050 #### [facility] [address] [place], [address] Potassium [Moles/Vol] 4.1 mmol/L Normal 3.5-5.1 [facility] Comment on above: Order Comment: Order Date: 10/11/23 Order Info: [id number] - CMP Order Info: - LIPID Order Info: [id number] - URIC Performed By: #### L 100.0500, L500.4050 #### [facility] [address] [place], [address] Sodium [Moles/Vol] 141 mmol/L Normal 136-145 [facility] Comment on above: Order Comment: Order Date: 10/11/23 Order Info: [id number]- - CMP Order Info: - LIPID Order Info: [id number] - URIC Performed By: #### L 100.0500, [id number] #### [facility] [address] [place], [address] T PROT 6.6 g/dL Normal 6.4-8.2 [facility] Comment on above: Order Comment: Order Date: 10/11/23 Order Info: [id number] - CMP Order Info: - LIPID Order Info: [id number] - URIC Performed By: #### L 100.0500, L500.4050 #### [facility] [address] [place], [address] Urea nitrogen [Mass/Vol] 13 mg/dL Normal 7-18 [facility] Comment on above: Order Comment: Order Date: 10/11/23 Order Info: [id number] - CMP Order Info: - LIPID Order Info: [id number] - URIC Performed By: #### L 100.0500, L500.4050 #### [facility] [address] [place], [address] Lipid Profileon 10-27-2023 Cholesterol [Mass/Vol] 177 mg/dL Normal 200 [facility] Comment on above: Order Comment: Order Date: 10/11/23 Order Info: [id number] - CMP Order Info: - LIPID Order Info: [id number] - URIC Result Comment: <200 mg/dL Desirable 200-240 mg/dL Borderline >240 mg/dL High Risk Performed By: #### L 501.1400, L500.4100 #### [facility] [address] [place], [address] Cholesterol in HDL [Mass/Vol] 54 mg/dL Normal [facility] Comment on above: Order Comment: Order Date: 10/11/23 Order Info: [id number] - CMP Order Info: - LIPID Order Info: [id number] - URIC Result Comment: The drugs N-Acetylcysteine and Metamizole may falsely depress this assay. Reference Range HDL <40 mg/dL Low HDL Cholesterol HDL >or= 60 mg/dL High HDL Cholesterol Performed By: #### L 501.1400, L500.4100 #### [facility] [address] [place], [address] Cholesterol in LDL [Mass/Vol] 97 mg/dL Normal 0-130 [facility] Comment on above: Order Comment: Order Date: 10/11/23 Order Info: [id number] - CMP Order Info: - LIPID Order Info: [id number] - URIC Performed By: #### L 501.1400, L500.4100 #### [facility] [address] [place], [address] Cholesterol in VLDL [Mass/Vol] 26 mg/dL Normal 5-40 [facility] Comment on above: Order Comment: Order Date: 10/11/23 Order Info: [id number] - CMP Order Info: [id number] - LIPID Order Info: [id number] - URIC Performed By: #### L 501.1400, L500.4100 #### [facility] [address] [place], [address] Triglyceride [Mass/Vol] 129 mg/dL Normal [facility] Comment on above: Order Comment: Order Date: 10/11/23 Order Info: 07 - CMP Order Info: [id number] - LIPID Order Info: [id number] - URIC Result Comment: The drugs N-Acetylcysteine and Metamizole may falsely depress this assay. Serum Triglycerides Reference Interval Normal <150 mg/dL Borderline high 150 - 199 mg/dL High 200 - 499 mg/dL Very High > or = 500 mg/dL Performed By: #### L 501.1400, L500.4100 #### [facility] [address] [place], [place], [address] Uric Acidon 10-27-2023 URIC 6.3 mg/dL Normal 3.5-7.2 [facility] Comment on above: Order Comment: Order Date: 10/11/23 Order Info: [id number] - CMP Order Info: [id number] - LIPID Order Info: [id number] - URIC Result Comment: The drugs N-Acetylcysteine and Metamizole may falsely depress this assay. Performed By: #### L 501.1400, L500.4100 #### [facility] [address] [place], [place], [address] Basophil percentageOrdered B y: Simon Nunez on 09-08-2023 Bilirubin [Mass/Vol] 1.20 mg/dL 0.20-1.00 [facility] Comment on above: For patients on eltr ombopag therapy, use of Dimension [place] TBIL is not recommended. Protein [Mass/Vol] 6.2 g/dL 6.4-8.2 [facility] Direct bilirubinOrdered By: Simon Nunez on 09-08-2023 Bilirubin.direct [Mass/Vol] 0.23 mg/dL 0.00-0.30 [facility] - Chemistry and C hemistry - challengeOrdered By: Simon Nunez on 09-08-2023 ALP [Catalytic activity/Vol] 43 U/L 45-117 [facility] ALT [Catalytic activity/Vol] 43 U/L 16-61 [facility] Globulin (S) [Mass/Vol] 2.6 g/dL 2.2-4.2 [facility] Liver Profileon 09-08-2023 Albumin [Mass/Vol] 3.6 g/dL Normal 3.2-5.0 [facility] Comment on above: Performed By: #### L 500.3400 #### [facility] [address] [place], [address] ALK P 43 U/L Low 45-117 [facility] Comment on above: Performed By: #### L 500.3400 #### [facility] [address] [place], [address] ALT [Catalytic activity/Vol] 43 U/L Normal 16-61 [facility] Comment on above: Performed By: #### L 500.3400 #### [facility] [address] [place], [address] AST [Catalytic activity/Vol] 27 U/L Normal 15-37 [facility] Comment on above: Performed By: #### L 500.3400 #### [facility] [address] [place], [address] Bilirubin [Mass/Vol] 1.20 mg/dL High 0.20-1.00 [facility] Comment on above: Result Comment: For patients on eltrombopag therapy, use of Dimension [place] TBIL is not recommended. Performed By: #### L 500.3400 #### [facility] [address] [place], [address] Bilirubin.direct [Mass/Vol] 0.23 mg/dL Normal 0.00-0.30 [facility] Comment on above: Performed By: #### L 500.3400 #### [facility] [address] [place], [address] Globulin (S) [Mass/Vol] 2.6 g/dL Normal 2.2-4.2 [facility] Comment on above: Performed By: #### L 500.3400 #### [facility] [address] [place], [address] T PROT 6.2 g/dL Low 6.4-8.2 [facility] Comment on above: Performed By: #### L 500.3400 #### [facility] [address] [place], [address] Thin prep Papanicolaou smear with manual screeningOrdered By: Simon Nunez on 09-08-2023 Thin prep Papanicolaou smear with manual screening 3.6 g/dL 3.2-5.0 [facility] Thin prep Papanicolaou smear with manual screening 27 U/L 15-37 [facility] - Chemistry and C hemistry - challengeon 01-06-2022 Cobalamin (Vitamin B12) [Mass/Vol] 335 pg/mL 211-911 [facility] Work Phone: Serum or plasma folate measu rement (mass/volume)on 01-06-2022 Folate [Mass/Vol] 19.40 ng/mL 3.1-55.4 [facility] Work Phone: Comment on above: Slight Hemolysis, Re sult may be falsely increased. Whole blood hemoglobin A1c/t otal hemoglobin ratio (mass fraction)on 01-06-2022 HbA1c (Bld) [Mass fraction] 5.1 % 3.8-5.6 [facility] Work Phone: Comment on above: Normal < 5.7 % Predi abetic 5.7 - 6.4 % Diabetic >or= 6.5 % Please note range changes. No Panel Informationon 11-08 Vitamin D 25-Hydroxy 35.3 ng/mL [facility] Work Phone: Comment on above: Vitamin D 25(OH) Sta tus Range Deficiency <20 ng/mL (50nmol/L) Insufficiency 20 - 30 ng/mL (50 - 75 nmol/L) Sufficiency 30 - 100 ng/mL (75 - 250 nmol/L) Toxicity >100 ng/mL (>250 nmol/L) Basophil percentageon 2021 Bilirubin [Mass/Vol] 0.90 mg/dL 0.20-1.00 [facility] Work Phone: Comment on above: For patients on eltr ombopag therapy, use of Dimension [place] TBIL is not recommended. Chloride [Moles/Vol] 105 mmol/L 98-107 [facility] Work Phone: Cholesterol [Mass/Vol] 215 mg/dL <200 [facility] Work Phone: [phone] Comment on above: <200 mg/dL Desirable 200-240 mg/dL Borderline >240 mg/dL High Risk Glucose [Mass/Vol] 98 mg/dL 74-106 [facility] Work Phone: [phone] Potassium [Moles/Vol] 4.0 mmol/L 3.5-5.1 [facility] Work Phone: [phone] Protein [Mass/Vol] 6.6 g/dL 6.4-8.2 [facility] Work Phone: [phone] Sodium [Moles/Vol] 141 mmol/L 136-145 [facility] Work Phone: [phone] Triglyceride [Mass/Vol] 161 mg/dL <199 [facility] Work Phone: [phone] Comment on above: The drugs N-Acetylcy steine and Metamizole may falsely depress this assay.Serum Triglycerides Reference Interval Normal <150 mg/dL Borderline high 150 - 199 mg/dL High 200 - 499 mg/dL Very High > or = 500 mg/dL Direct bilirubinon 2 Bilirubin.direct [Mass/Vol] 0.23 mg/dL 0.00-0.30 [facility] Work Phone: [phone] Laboratory - Chemistry and C hemistry - challengeon 11-05-2021 ALP [Catalytic activity/Vol] 46 U/L 45-117 [facility] Work Phone: [phone] ALT [Catalytic activity/Vol] 60 U/L 16-61 [facility] Work Phone: [phone] CO2 [Moles/Vol] 31.0 mmol/L 21.0-32.0 [facility] Work Phone: [phone] Globulin (S) [Mass/Vol] 2.8 g/dL 2.2-4.2 [facility] Work Phone: [phone] Urea nitrogen/Creatinine [Mass ratio] 16.9 mg/mg 10-20 [facility] Work Phone: [phone] No Panel Informationon 11-05 Estimated GFR (MDRD) Amer 107 mL/min >60 [facility] Work Phone: Comment on above: GFR Calc Estimated GFR (MDRD) Non-Af Amer 89 mL/min >60 [facility] Work Phone: Comment on above: Non- GFR Calc Prostate Specific Antigen Screen 1.51 ng/mL 0.00-4.00 [facility] Work Phone: Comment on above: This test was perfor med using the TPSA assay method for [employer] chemistry system. Values obtained with differentassay methods cannot be used interchangably.When changing PSA assays in the course of monitoring apatient, additional sequential testing should be carriedout to confirm baseline values. Thyroid Stimulating Hormone (TSH) 2.56 uIU/mL 0.358-3.74 [facility] Work Phone: Serum or plasma albumin yane urement (mass/volume)on 11-05-2021 Albumin [Mass/Vol] 3.8 g/dL 3.2-5.0 [facility] Work Phone: Serum or plasma calcium yane urement (mass/volume)on 11-05-2021 Calcium [Mass/Vol] 9.2 mg/dL 8.5-10.1 [facility] Work Phone: Serum or plasma cholesterol in HDL measurement (mass/volume)on 11-05-2021 Cholesterol in HDL [Mass/Vol] 62 mg/dL >40 [facility] Work Phone: Comment on above: The drugs N-Acetylcy steine and Metamizole may falsely depress this assay. Reference Range HDL <40 mg/dL Low HDL Cholesterol HDL >or= 60 mg/dL High HDL Cholesterol Serum or plasma cholesterol in VLDL measurement (mass/volume)on 11-05-2021 Cholesterol in VLDL [Mass/Vol] 32 mg/dL 5-40 [facility] Work Phone: Serum or plasma creatinine m easurement (mass/volume)on 11-05-2021 Creatinine [Mass/Vol] 0.89 mg/dL 0.70-1.30 [facility] Work Phone: Comment on above: The validity of the calculated GFR & GFRAA in patients over 70 years has not been determined. Clinical correlation is essential. Serum or plasma low density lipoprotein (LDL) cholesterol measurement (mass/volume)on 11-05-2021 Cholesterol in LDL [Mass/Vol] 121 mg/dL 0-130 [facility] Work Phone: Serum or plasma urea nitroge n measurement (mass/volume)on 11-05-2021 Urea nitrogen [Mass/Vol] 15 mg/dL 7-18 [facility] Work Phone: Thin prep Papanicolaou smear with manual screeningon 11-05-2021 Thin prep Papanicolaou smear with manual screening 33 U/L 15-37 [facility] Work Phone: Thin prep Papanicolaou smear with manual screening 5 5-15 [facility] Work Phone: Dermatopathologyon Dermatopathology 75 Pathologist: SARAH CANTUate of Procedure: 03/08/2017Date Received: 03/14/2017Date Reported 03/15/2017Submitting Physician: CARLIN RUIZ MDLocation: SHAAN FINAL DIAGNOSISSKIN, LEFT UPPER BACK AT SHOULDER, SHAVE BIOPSY:PSORIASIFORM HYPERPLASIA, 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 There is parakeratosis with neutrophils in the stratumcorneum with papillomatosis and moderate irregular acanthosis of the epidermiswith some dilation of superficial dermal blood vessels, a moderate superficiallymphocytic infiltrate, thinning of the suprapapillary plate in areas andcollections of neutrophils in the upper epidermis.These findings may be seen in psoriasis or a psoriasiform keratosis ifsolitary. Electronically Signed Out by INNA FRANCISCO M.D. Electronically SignedOut By INNA FRANCISCO MD/[facility] Clinical History:R/O BCC vs. SCC. Shave Biopsy. ([place])Specimens Submitted As:A: SKIN, LEFT UPPER BACK AT SHOULDER Gross Description:Received in formalin is a fischer piece of skin measuring [id number]. The specimen isinked and embedded in toto./03/14/2017 Normal [facility] Comment on above: Performed By: #### D ####Dermatopathology Vital Signs Date Time Vital Sign Value Performing Clinician Judy torres 05-13-2024 08:33-0500 Body height 182.9 cm Gem Rani COMMERCIAL LEASE ADMINISTRATOR.MANAGER SURGERY Work Phone: [facility] 05-13-2024 08:33-0500 Body mass index (BMI) [Ratio] 26.75 kg/m2 Gem Rani COMMERCIAL LEASE ADMINISTRATOR.MANAGER SURGERY Work Phone: [facility] 05-13-2024 08:33-0500 Body temperature 97.2 [degF] Gem Rani COMMERCIAL LEASE ADMINISTRATOR.MANAGER SURGERY Work Phone: [facility] 05-13-2024 08:33-0500 Body weight 89.45 kg Gem Rani COMMERCIAL LEASE ADMINISTRATOR.MANAGER SURGERY Work Phone: [facility] 05-13-2024 08:33-0500 Diastolic blood pressure 82 mm[Hg] Gem Rani COMMERCIAL LEASE ADMINISTRATOR.MANAGER SURGERY Work Phone: [facility] [place] 05-13-2024 08:33-0500 Heart rate 72 /min Gem Macedoir COMMERCIAL LEASE ADMINISTRATOR.MANAGER SURGERY Work Phone: [facility] [place] 05-13-2024 08:33-0500 SaO2% (BldA) [Mass fraction] 100 % eGm Rani COMMERCIAL LEASE ADMINISTRATOR.MANAGER SURGERY Work Phone: [facility] 05-13-2024 08:33-0500 Systolic blood pressure 124 mm[Hg] Gem Rani COMMERCIAL LEASE ADMINISTRATOR.MANAGER SURGERY Work Phone: [facility] Encounters Encounter Date Encounter Type Care Provider Facility Start: 07-03-2024 End: 07-03-2024 Telephone encounter Flynn Serna MD Work Phone: General Surgery Comment on above: Results Start: 07-01-2024 End: 07-01-2024 Admission to same day surgery center Gem Saravia MANAGER SURGERY Work Phone: General Surgery Comment on above: Colonoscopy polyps Start: 07-01-2024 End: 07-01-2024 E-mail encounter from caregiver Gem Saravia APRNChandrakantMANAGER SURGERY Work Phone: General Surgery Start: 06-28-2024 End: 06-28-2024 ambulatory FLYNN SERNA Facility:[facility] Start: 06-12-2024 [facility] Start: 06-12-2024 End: 06-12-2024 ambulatory [facility] Facility:[facility] Start: 05-13-2024 End: 07-10-2024 Telephone encounter Gem Saravia MANAGER SURGERY Work Phone: General Surgery Comment on above: 06-29-2024 Colon [facility] Start: 05-13-2024 End: 05-13-2024 ambulatory GEM RANI Facility:[facility] Start: 05-13-2024 End: 05-13-2024 Patient encounter procedure Gem Saravia JETHRO.MANAGER SURGERY Work Phone: General Surgery Comment on above: Encounter for screen ing for malignant neoplasm of colon (Primary Dx); History of colonic polyps Start: 10-27-2023 End: 10-27-2023 ambulatory [facility] Facility:[facility] Start: 09-08-2023 End: 09-08-2023 ambulatory [facility] Work Phone: Start: 09-08-2023 End: 09-08-2023 Patient encounter procedure [facility] Work Phone: Start: 09-08-2023 End: 09-08-2023 ambulatory [facility] Facility:[facility] Start: 01-06-2022 End: 01-06-2022 Patient encounter procedure [facility] Start: 11-08-2021 End: 11-08-2021 Patient encounter procedure [facility] Start: 11-05-2021 End: 11-05-2021 Patient encounter procedure [facility] Start: 03-08-2017 Ambulatory Carlin Ruiz Facilit [id number] Procedures Date Procedure Procedure Detail Performing Clinician Start: 06-28-2024 Colonoscopy Gem Saravia APRN.CNP Work Phone: Plan of Treatment Date Care Activity Detail Author Start: 10-23-2030 Urine microalbumin profile DTaP,Tdap,Td Vaccine (4 - Td or Tdap) [facility] Start: 06-28-2029 Screening for malign ant neoplasm of colon [facility] Start: 06-05-2024 Advance Directive Discussion Advance Directive Discussion [facility] Start: 04-12-2024 Covid-19 Vaccine () Covid-19 Vaccine () [facility] Start: 06-05-2023 Advance Directive Discussion Advance Directive Discussion [facility] Start: 01-06-2022 Thiamine measurement [facility] Work Phone: Start: 01-06-2022 Vitamin B6 measurement [facility] Work Phone: Start: 10-10-2017 Diabetes Screening Diabetes Screenin g [facility] Start: 05-03-2014 Screening for malign ant neoplasm of colon Fecal Occult Blood [facility] Start: 1964 Anxiety Screening Anxiety Screening [facility] Start: 1964 Depression Screening Depression Scre [facility] Start: 1964 Hepatitis C screening Hepatitis C [facility] Start: 1945 Screening for malign ant neoplasm of colon [facility] End: 05-13-2025 Screening colonoscopy COLONOSCOPY SCREENING Endoscopy Routine Encounter for screening for malignant neoplasm of colon History of colonic polyps 1 Occurrences starting 05/13/2024 until 05/13/2025 [facility] Work Phone: Comment on above: 1 Occurrences starti ng 05/13/2024 until 05/13/2025 Thiamine measurement [facility] Work Phone: Vitamin B6 measurement [facility] Work Phone: Immunizations Immunization Date Immunization Notes Care Provider Geneva white 05-16-2016 influenza, high dose seasonal, preservative-free Gem Saravia APRN.MANAGER SURGERY Work Phone: [facility] 05-16-2016 pneumococcal conjuga te vaccine, 13 valent Gem Rani COMMERCIAL LEASE ADMINISTRATOR.MANAGER SURGERY Work Phone: [facility] 03-20-2014 influenza, seasonal, injectable Gem Rani COMMERCIAL LEASE ADMINISTRATOR.MANAGER SURGERY Work Phone: [facility] Work Phone: 03-21-2013 influenza virus vacc ine, unspecified formulation Gem Rani COMMERCIAL LEASE ADMINISTRATOR.MANAGER SURGERY Work Phone: [facility] 06-15-2012 zoster vaccine, live Kimberl ey Rani COMMERCIAL LEASE ADMINISTRATOR.MANAGER SURGERY Work Phone: [facility] 05-04-2012 influenza virus vacc ine, unspecified formulation Gem Rani COMMERCIAL LEASE ADMINISTRATOR.MANAGER SURGERY Work Phone: [facility] 05-04-2012 pneumococcal polysaccharide vaccine, 23 valent Gem Rani COMMERCIAL LEASE ADMINISTRATOR.MANAGER SURGERY Work Phone: [facility] 10-09-2009 tetanus toxoid, redu manas diphtheria toxoid, and acellular pertussis vaccine, adsorbed Gem Rani COMMERCIAL LEASE ADMINISTRATOR.MANAGER SURGERY Work Phone: [facility] 07-01-2003 diphtheria and tetan us toxoids, adsorbed for pediatric use Gem Rani COMMERCIAL LEASE ADMINISTRATOR.MANAGER SURGERY Work Phone: [facility] Payers Date Payer Category Payer Self-pay [id number] 2022 Private Health Insurance [facility] AARP SUPPLEMENT [id number] 2022-Present [phone] [address] [place] [address] Indemnity [id number] 2022 Unknown [id number] 2011 Medicare MEDICARE MEDICAR E A AND B [id number] 2011-Present [phone] [place] [address] Medicare [id number] 2011 Medicare [id number] Unknown [id number] Unknown [id number] Unknown [id number] Unknown [id number] Unknown [id number] Social History Date Type Detail Facility Assertion Tobacco smoking consumption unknown (finding) [id number] Work Phone: Start: 10-13-2020 Tobacco smoking stat [facility] Unknown if ever smoked [facility] Start: 10-13-2020 Non-smoker;Cigarettes [facility] Start: 1945 Sex Assigned At Male [facility] Start: 08-23-2018 Tobacco smoking stat [facility] Ex-smoker [facility] History of tobacco use Current smoker [facility] History of tobacco use Cigarette Smoker [facility] Start: 08-23-2018 End: 05-13-2024 Cigarettes smoked current (pack per day) - Reported 1 [facility] Start: 08-23-2018 Tobacco use and exposure Smokeless tobacco non-user [facility] Start: 05-13-2024 End: 06-28-2024 Alcoholic beverage intake Current drinker of alcohol (finding) [facility] Start: 05-13-2024 End: 06-28-2024 Tobacco use panel [facility] National Score (1-10 0), lower number is lower risk 99 [facility] Start: 08-23-2018 Tobacco Comment quit at age 24 [facility] Start: 1945 Sex assigned at Not on file [facility] Medical Equipment Procedure Code Equipment Code Equipment Origin al Text Equipment Identifier Dates Biopsy, artery, temporal SUTURE,LIGA CLIP SM LT-100 FDA Start: 2020 Biopsy, artery, temporal SUTURE,LIGA CLIP SM LT-100 FDA Start: 2020 Biopsy, artery, temporal SUTURE,LIGA CLIP SM LT-100 FDA Start: 2020 Biopsy, artery, temporal SUTURE,LIGA CLIP SM LT-100 FDA Start: 2020 Biopsy, artery, temporal SUTURE,LIGA CLIP SM LT-100 FDA Start: 2020 Biopsy, artery, temporal SUTURE,LIGA CLIP SM LT-100 FDA Start: 2020 Biopsy, artery, temporal SUTURE,LIGA CLIP SM LT-100 FDA Start: 2020 Biopsy, artery, temporal SUTURE,LIGA CLIP SM LT-100 FDA Start: 2020 Biopsy, artery, temporal SUTURE,LIGA CLIP SM LT-100 FDA Start: 2020 Biopsy, artery, temporal SUTURE,LIGA CLIP SM LT-100 FDA Start: 2020 Functional Status Date Assessment Result Facility NEGATED: Highlighted row Functional performance Functional status health issues are not documented Disease [id number] Work Phone: Mental Status Date Assessment Result Facility NEGATED: Highlighted row Cognitive function [Interpretation] Cognitive status health issues are not documented Disease [facility] Work Phone: Clinical Notes 05-13-2024 to 07-05-2024 Telephone Encounter - Daryl Hidalgo - 07/05/2024 10:18 AM ESTTelephone Encounter - Daryl Hidalgo - 07/05/2024 10:18 AM ESTTelephone Encounter - Daryl Hidalgo - 07/05/2024 8:50 AM EST Note Date & Type Note Facility 07-05-2024 Telephone encounter Note contacted Dimitri melgoza and provided time for next colonoscopy; 5 years or sooner if patients has any issues or changes in bowel habits. [facility] 07-05-2024 Miscellaneous Notes contacted Miltocelena melgoza and provided time for next colonoscopy; 5 years or sooner if patients has any issues or changes in bowel habits. patient was never scheduled for a follow up after procedure. Dimitri melgoza called asking when patient should have next colonoscopy. Once I have the recommendation I will call and let PCP office know at [phone] Option 2 Do you want patient to come into the office to go over path? 06-28-2024 [facility], provider went over all prep instructions, Patient has direct number to call if he has any questions Daryl Hidalgo documented in this encounter [facility] 07-05-2024 Telephone encounter Note patient was never scheduled for a follow up after procedure. Dimitri melgoza called asking when patient should have next colonoscopy. Once I have the recommendation I will call and let PCP office know at [phone] Option 2 Do you want patient to come into the office to go over path? [facility] 07-03-2024 Telephone encounter Note FOLLOW UP ENDOSCOPY - RESULTS AND RECOMMENDATIONS NAME: Scout Cota CLINIC NO.: [id number] : 1945 DATE: July 03, 2024 PRIMARY CARE PROVIDER: Aisha Kwan MD Scout Cota is a patient referred for endoscopy for screening colonoscopy with a personal history of polyps. I performed lower endoscopy on June 28, 2024. The patient was found to have: Lower Endoscopy Impression: - Two small (4-6 mm) polyps in the proximal transverse colon and in the ascending colon, removed with a cold biopsy forceps. Resected and retrieved. - The examination was otherwise normal on direct and retroflexion views. Pathology demonstrated: FINAL DIAGNOSIS A. Colon, ascending polyp, biopsy: - Colonic mucosa with no diagnostic abnormalities. B. Colon, transverse polyp, biopsy: - Fragments of tubular adenoma. IMPRESSION: small tubular adenoma PLAN: INSTRUCTIONS FOLLOWING A POLYP FOUND AT COLONOSCOPY You were found to have an adenomatous colon polyp. I recommend you undergo repeat endoscopy in 5 years. If you note bleeding, change in bowel habits, or other suspicious colon related symptoms before that time, those symptoms should be evaluated as necessary. If you have any difficulties or concerns, you should contact our office immediately. The patient is instructed to follow-up with your primary care provider if needed I have instructed my staff to forward the above information to the patient and to the appropriate providers [facility] Work Phone: 07-03-2024 Miscellaneous Notes FOLLOW UP ENDOSCOPY - RESULTS AND RECOMMENDATIONS NAME: Scout Cota [facility] NO.: [id number] : 1945 DATE: July 03, 2024 PRIMARY CARE PROVIDER: Aisha Kwan MD Scout Cota is a patient referred for endoscopy for screening colonoscopy with a personal history of polyps. I performed lower endoscopy on June 28, 2024. The patient was found to have: Lower Endoscopy Impression: - Two small (4-6 mm) polyps in the proximal transverse colon and in the ascending colon, removed with a cold biopsy forceps. Resected and retrieved. - The examination was otherwise normal on direct and retroflexion views. Pathology demonstrated: FINAL DIAGNOSIS A. Colon, ascending polyp, biopsy: - Colonic mucosa with no diagnostic abnormalities. B. Colon, transverse polyp, biopsy: - Fragments of tubular adenoma. IMPRESSION: small tubular adenoma PLAN: INSTRUCTIONS FOLLOWING A POLYP FOUND AT COLONOSCOPY You were found to have an adenomatous colon polyp. I recommend you undergo repeat endoscopy in 5 years. If you note bleeding, change in bowel habits, or other suspicious colon related symptoms before that time, those symptoms should be evaluated as necessary. If you have any difficulties or concerns, you should contact our office immediately. The patient is instructed to follow-up with your primary care provider if needed I have instructed my staff to forward the above information to the patient and to the appropriate providers documented in this encounter [facility] 05-13-2024 Telephone encounter Note 06-28-2024 Colon [facility], provider went over all prep instructions, Patient has direct number to call if he has any questions Daryl Hidalgo [facility] 05-13-2024 Nurse Note REVIEW OF SYSTEMS: General: The patient denies fatigue, denies weight loss, denies weight gain, denies feeling hot, and denies feelings of cold. Eyes: The patient denies glaucoma, denies eye injury/surgery, does not wear glasses or contacts. Ear/Nose/Throat: The patient denies allergies, denies hayfever, denies ear infections, and denies bloody noses. Cardiovascular: The patient denies chest pain, denies heart disease, denies high blood pressure,denies cardiac stent, denies prior heart attack, denies irregular heart beat, NOTES high cholesterol, denies poor circulation, denies heart failure, other cardiac issues, denies claudication, denies cold feet, denies peripheral arterial stent. Respiratory: The patient denies tuberculosis, denies pneumonia, denies frequent cough, denies pulmonary embolism, denies shortness of breath, and denies coughing up blood. Gastrointestinal: The patient denies difficulty swallowing, denies acid reflux, denies ulcers, denies vomiting, denies jaundice/hepatitis, denies gallbladder problems, denies black or tarry stools, NOTES hemorrhoids, denies bleeding from rectum, denies diverticulitis, denies constipation, denies diarrhea, denies loss of stool control, and denies hernias. Kidney/Bladder: The patient denies kidney stones, denies urine infections, and denies bloody urine. Skin: The patient denies a history of skin cancer, denies bleeding/changing moles, and denies a history of skin rash. Neurologic: The patient denies a history of epilepsy/convulsions, denies headaches, denies head/spinal injuries, and denies stroke/TIA. Psychiatric: The patient denies psychiatric medications, denies depression, and denies voices, denies substance abuse. Endocrine: The patient denies thyroid disorders, denies diabetes, and denies hormonal problems. Hematologic: The patient denies a history of bruising, denies bleeding, and denies anemia, denies blood clots. Infections: The patient denies a history of measles and mumps, denies rheumatic fever, and denies sexually transmitted diseases. Musculoskeletal: The patient denies back pain/injury, denies back problems, denies sciatica, denies knee/foot trouble, denies arthritis, or NOTES gout. When was patient's last Mammogram screening? N/A Last Colonoscopy: 08/23/2018 Ana Dunham RN [facility] 05-13-2024 Nurse Note REVIEW OF SYSTEMS: General: The patient denies fatigue, denies weight loss, denies weight gain, denies feeling hot, and denies feelings of cold. Eyes: The patient denies glaucoma, denies eye injury/surgery, does not wear glasses or contacts. Ear/Nose/Throat: The patient denies allergies, denies hayfever, denies ear infections, and denies bloody noses. Cardiovascular: The patient denies chest pain, denies heart disease, denies high blood pressure,denies cardiac stent, denies prior heart attack, denies irregular heart beat, NOTES high cholesterol, denies poor circulation, denies heart failure, other cardiac issues, denies claudication, denies cold feet, denies peripheral arterial stent. Respiratory: The patient denies tuberculosis, denies pneumonia, denies frequent cough, denies pulmonary embolism, denies shortness of breath, and denies coughing up blood. Gastrointestinal: The patient denies difficulty swallowing, denies acid reflux, denies ulcers, denies vomiting, denies jaundice/hepatitis, denies gallbladder problems, denies black or tarry stools, NOTES hemorrhoids, denies bleeding from rectum, denies diverticulitis, denies constipation, denies diarrhea, denies loss of stool control, and denies hernias. Kidney/Bladder: The patient denies kidney stones, denies urine infections, and denies bloody urine. Skin: The patient denies a history of skin cancer, denies bleeding/changing moles, and denies a history of skin rash. Neurologic: The patient denies a history of epilepsy/convulsions, denies headaches, denies head/spinal injuries, and denies stroke/TIA. Psychiatric: The patient denies psychiatric medications, denies depression, and denies voices, denies substance abuse. Endocrine: The patient denies thyroid disorders, denies diabetes, and denies hormonal problems. Hematologic: The patient denies a history of bruising, denies bleeding, and denies anemia, denies blood clots. Infections: The patient denies a history of measles and mumps, denies rheumatic fever, and denies sexually transmitted diseases. Musculoskeletal: The patient denies back pain/injury, denies back problems, denies sciatica, denies knee/foot trouble, denies arthritis, or NOTES gout. When was patient's last Mammogram screening? N/A Last Colonoscopy: 08/23/2018 Ana Dunham RN documented in this encounter [facility] [place] 05-13-2024 History of Presen t illness Narrative HISTORY AND PHYSICAL Scout Cota : 1945 REFERRING PHYSICIAN: No referring provider defined for this encounter. CHIEF COMPLAINT: Patient presents with: Consult: colonoscopy HPI: Scout is a 78 year old male referred for endoscopy. Scout notes due for screening colonoscopy- history of polyps (2018). Scout denies abdominal pain.. Scout denies diarrhea. Scout denies constipation. Scout denies a change in bowel habits. Scout denies melena. Scout denies bright red blood per rectum. Scotu denies hemorrhoids. Scout denies heartburn. Scout denies dysphagia. Scout denies a history of ulcers/ peptic ulcer disease. Scout denies family history of colon issues. Scout's medical history is significant for giant cell arteritis with polymyalgia rheumatica. He gets monthly Actemra infusions. Follows [facility]. Scout has undergone prior endoscopy. Last colonoscopy was 08/[address] Noriega at [facility]. Sedation: Midazolam 5 mg IV, Fentanyl 100 micrograms IV Impression: - Diverticulosis in the sigmoid colon. - Non-bleeding internal hemorrhoids. - One 5 to 10 mm polyp in the ascending colon, removed with a cold biopsy forceps. Resected and retrieved. CONVERTED FINAL DIAGNOSIS Right colon, polyp, biopsy - Sessile serrated polyp. ANUJA/eeh 08/24/2018 Current Outpatient Medications Medication Sig tocilizumab (ACTEMRA) 200 mg/10 mL (20 mg/mL) soln as directed intravenously every 4 weeks aspirin 81 mg chewable tablet Take 81 mg by mouth once daily. atorvastatin (LIPITOR) 10 mg tablet Take 1 tablet by mouth once daily. allopurinol (ZYLOPRIM) 100 mg tablet Take 1 tablet by mouth once daily. peg 3350-Electrolytes (GOLYTELY) 236-22.74-6.74 -5.86 gram suspension Take 4,000 mL by mouth one time only for 1 dose. Refer to printed prep instructions from your provider. No current facility-administered medications for this visit. ALLERGIES: Patient has no known allergies. 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 hemipelvis-asymptomatic PAST SURGICAL HISTORY Procedure Laterality Date COLONOSCOPY FLX DX W/COLLJ SPEC WHEN PFRMD 06/13/2008 Colonoscopy COLONOSCOPY FLX DX W/COLLJ SPEC WHEN PFRMD 08/23/2018 Colonoscopy PAST SURGICAL HISTORY OF right hand surgery FAMILY HISTORY Adopted: Yes Problem Relation Age of Onset other (adopted) Other family hx is unknown Social History Tobacco Use Smoking status: Former Current packs/day: 1.00 Average packs/day: 1 pack/day for 5.0 years (5.0 ttl pk-yrs) Types: Cigarettes Smokeless tobacco: Never Tobacco comments: quit at age 24 Vaping Use Vaping status: Never Used Substance Use Topics Alcohol use: Yes Comment: occasionally Drug use: No REVIEW OF SYMPTOMS: The review of systems data was entered by the nurse and reviewed by ny Nursing Notes: Ana Dunham RN 05/13/2024 8:33 AM Signed REVIEW OF SYSTEMS: General: The patient denies fatigue, denies weight loss, denies weight gain, denies feeling hot, and denies feelings of cold. Eyes: The patient denies glaucoma, denies eye injury/surgery, does not wear glasses or contacts. Ear/Nose/Throat: The patient denies allergies, denies hayfever, denies ear infections, and denies bloody noses. Cardiovascular: The patient denies chest pain, denies heart disease, denies high blood pressure,denies cardiac stent, denies prior heart attack, denies irregular heart beat, NOTES high cholesterol, denies poor circulation, denies heart failure, other cardiac issues, denies claudication, denies cold feet, denies peripheral arterial stent. Respiratory: The patient denies tuberculosis, denies pneumonia, denies frequent cough, denies pulmonary embolism, denies shortness of breath, and denies coughing up blood. Gastrointestinal: The patient denies difficulty swallowing, denies acid reflux, denies ulcers, denies vomiting, denies jaundice/hepatitis, denies gallbladder problems, denies black or tarry stools, NOTES hemorrhoids, denies bleeding from rectum, denies diverticulitis, denies constipation, denies diarrhea, denies loss of stool control, and denies hernias. Kidney/Bladder: The patient denies kidney stones, denies urine infections, and denies bloody urine. Skin: The patient denies a history of skin cancer, denies bleeding/changing moles, and denies a history of skin rash. Neurologic: The patient denies a history of epilepsy/convulsions, denies headaches, denies head/spinal injuries, and denies stroke/TIA. Psychiatric: The patient denies psychiatric medications, denies depression, and denies voices, denies substance abuse. Endocrine: The patient denies thyroid disorders, denies diabetes, and denies hormonal problems. Hematologic: The patient denies a history of bruising, denies bleeding, and denies anemia, denies blood clots. Infections: The patient denies a history of measles and mumps, denies rheumatic fever, and denies sexually transmitted diseases. Musculoskeletal: The patient denies back pain/injury, denies back problems, denies sciatica, denies knee/foot trouble, denies arthritis, or NOTES gout. When was patient's last Mammogram screening? N/A Last Colonoscopy: 08/23/2018 Ana Dunham RN PHYSICAL EXAMINATION: General: The patient is 78 year old, male well nourished, well hydrated in no acute distress. The patient is oriented to time, place, and person. VITALS: Blood pressure 124/82, pulse 72, temperature 36.2 C (97.2 F), height 182.9 cm (6'), weight 89.4 kg (197 lb 3.2 oz), SpO2 100%. Body mass index is 26.75 kg/m . HEENT: Normal cephalic, ataumatic, pupils are equally round, sclera are anicteric, mucous membranes are moist, oropharynx is clear. Neck has no masses, asymmetry or lymphadenopathy. Respiratory: Clear to auscultation and percussion. Normal respiratory excursion and pattern. Cardiac: Examination is regular rate and rhythm. Normal S1/S2 Abdominal exam: Soft, nontender, with no palpable masses. No hepatosplenomegaly. No palpable hernias. Extremities: no clubbing, cyanosis or edema. No adenopathy. LABORATORY VALUES: As Noted RADIOLOGIC STUDIES: As Noted Assessment IMPRESSION: screen for colon cancer, history of polyps PLAN: I have reviewed my findings with the surgeon. Will plan for lower endoscopy. We discussed the risks and benefits of the planned endoscopy. I have informed the patient that complications can occur including failure to complete the endoscopy and perforation. Scout had the opportunity to ask questions concerning the planned endoscopy. My staff has also explained the procedure to the patient in understandable terms and has given the patient printed material concerning the procedure. Scout freely consents to surgery. I plan to use Golytely bowel preparation I have explained to the patient the difference between IV conscious sedation and MAC anesthesia - and I have offered either, according to the patient's wishes. I have explained that with IV conscious sedation there is no anesthesia provider available and therefore there is a limitation of the amount of IV medications that can be given and that the patient may wake up in the middle of the procedure and/or experience pain/discomfort during the procedure. Further discussion was done and the patient was given the opportunity to ask questions and all questions were answered. Scout chooses IV conscious sedation. Scout was counseled that if there are changes in his/her medical condition, to let the office know if surgery should proceed. If there are changes in patient's medical condition from time of this encounter to the day of the procedure that preclude anesthesia, patient may have procedure cancelled for patient's safety. Diagnoses: (Z12.11) Encounter for screening for malignant neoplasm of colon (primary encounter diagnosis) (Z86.0100) History of colonic polyps Portions of this documentation were copied and pasted from previous office visit notes in order to provide a cohesive continuity of the history. The note has been reviewed and edited and updated as necessary. Gem Saravia APRN.MANAGER SURGERY documented in this encounter [facility] [place] 05-13-2024 Note HNO ID: [id number] Author: GEM SARAVIA APRN.BRIANA Service: ? Author Type: Nurse Practitioner Type: Progress Notes Filed: 05/13/2024 08:56 Note Text: HISTORY AND PHYSICAL Scout Cota : 1945 REFERRING PHYSICIAN: No referring provider defined for this encounter. CHIEF COMPLAINT: Patient presents with: Consult: colonoscopy HPI: Scout is a 78 year old male referred for endoscopy. Scout notes due for screening colonoscopy- history of polyps (2019). Scout denies abdominal pain.. Scout denies diarrhea. Scout denies constipation. Scout denies a change in bowel habits. Scout denies melena. Scout denies bright red blood per rectum. Scout denies hemorrhoids. Scout denies heartburn. Scout denies dysphagia. Scout denies a history of ulcers/ peptic ulcer disease. Scout denies family history of colon issues. Scout's medical history is significant for giant cell arteritis with polymyalgia rheumatica. He gets monthly Actemra infusions. Follows [facility]. Scout has undergone prior endoscopy. Last colonoscopy was 08/[address] Noriega at [facility]. Sedation: Midazolam 5 mg IV, Fentanyl 100 micrograms IV Impression: - Diverticulosis in the sigmoid colon. - Non-bleeding internal hemorrhoids. - One 5 to 10 mm polyp in the ascending colon, removed with a cold biopsy forceps. Resected and retrieved. CONVERTED FINAL DIAGNOSIS Right colon, polyp, biopsy - Sessile serrated polyp. [facility] 08/24/2018 Current Outpatient Medications Medication Sig tocilizumab (ACTEMRA) 200 mg/10 mL (20 mg/mL) soln as directed intravenously every 4 weeks aspirin 81 mg chewable tablet Take 81 mg by mouth once daily. atorvastatin (LIPITOR) 10 mg tablet Take 1 tablet by mouth once daily. allopurinol (ZYLOPRIM) 100 mg tablet Take 1 tablet by mouth once daily. peg 3350-Electrolytes (GOLYTELY) 236-22.74-6.74 -5.86 gram suspension Take 4,000 mL by mouth one time only for 1 dose. Refer to printed prep instructions from your provider. No current facility-administered medications for this visit. ALLERGIES: Patient has no known allergies. 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 hemipelvis-asymptomatic PAST SURGICAL HISTORY Procedure Laterality Date COLONOSCOPY FLX DX W/COLLJ SPEC WHEN PFRMD 06/13/2008 Colonoscopy COLONOSCOPY FLX DX W/COLLJ SPEC WHEN PFRMD 08/23/2018 Colonoscopy PAST SURGICAL HISTORY OF right hand surgery FAMILY HISTORY Adopted: Yes Problem Relation Age of Onset other (adopted) Other family hx is unknown Social History Tobacco Use Smoking status: Former Current packs/day: 1.00 Average packs/day: 1 pack/day for 5.0 years (5.0 ttl pk-yrs) Types: Cigarettes Smokeless tobacco: Never Tobacco comments: quit at age 24 Vaping Use Vaping status: Never Used Substance Use Topics Alcohol use: Yes Comment: occasionally Drug use: No REVIEW OF SYMPTOMS: The review of systems data was entered by the nurse and reviewed by ny Nursing Notes: Ana Dunham RN 05/13/2024 8:33 AM Signed REVIEW OF SYSTEMS: General: The patient denies fatigue, denies weight loss, denies weight gain, denies feeling hot, and denies feelings of cold. Eyes: The patient denies glaucoma, denies eye injury/surgery, does not wear glasses or contacts. Ear/Nose/Throat: The patient denies allergies, denies hayfever, denies ear infections, and denies bloody noses. Cardiovascular: The patient denies chest pain, denies heart disease, denies high blood pressure,denies cardiac stent, denies prior heart attack, denies irregular heart beat, NOTES high cholesterol, denies poor circulation, denies heart failure, other cardiac issues, denies claudication, denies cold feet, denies peripheral arterial stent. Respiratory: The patient denies tuberculosis, denies pneumonia, denies frequent cough, denies pulmonary embolism, denies shortness of breath, and denies coughing up blood. Gastrointestinal: The patient denies difficulty swallowing, denies acid reflux, denies ulcers, denies vomiting, denies jaundice/hepatitis, denies gallbladder problems, denies black or tarry stools, NOTES hemorrhoids, denies bleeding from rectum, denies diverticulitis, denies constipation, denies diarrhea, denies loss of stool control, and denies hernias. Kidney/Bladder: The patient denies kidney stones, denies urine infections, and denies bloody urine. Skin: The patient denies a history of skin cancer, denies bleeding/changing moles, and denies a history of skin rash. Neurologic: The patient denies a history of epilepsy/convulsions, denies headaches, denies head/spinal injuries, and denies stroke/TIA. Psychiatric: The patient denies psychiatric medications, denies depression, and denies voices, (more content not included)... [facility] Evaluation note No assessment inform ation available [facility] Work Phone: Evaluation note Diagnosis Encounter for screening for malignant neoplasm of colon- Primary Special screening for malignant neoplasms, colon History of colonic polyps Personal history of colonic polyps documented in this encounter [facility] Outpatient Procedure (Routine) - New Request Specialty Diagnoses / Procedures Referred By Contac t Referred To Contact [facility] Diagnoses Encounter for screening for malignant neoplasm of colon History of colonic polyps Procedures COLONOSCOPY SCREENING COLONOSCOPY FLX DX W/COLLJ SPEC WHEN Gem Ellis APRN.CNP [address] [place] [address] [facility] [address] [place] [id number] Referral ID Status Reason Start Date Expiration Date Visits Requested Visits Authorized [id number] New Request Auto-Generat ed Referral 05/13/2024 05/13/2025 1 1 [facility] Summary Purpose Family History No Family History Records Found Relationship Condition Age at Onset Recorded Date/T edgardo Not Specified Adopted Unknown Advance Directives No Advanced Directives Records Found Advance Directive Response Recorded Date/ Time Living Will Yes October 13, 2020 8 :13am Power of Finishing Powder Press Operator Yes October 13, 2020 8:13am Chief Complaint and Reason for Visit Chief Complaint E ORDER ALSO Additional Source Comments (unrecognized sect ion and content) No Status Records FoundNo Status Records FoundNo Status Records Found INFORMATION SOURCE (unrecogn ized section and content) DATE CREATED AUTHOR 11/28/2017 [facility] DATE CREATED AUTHOR AUTHOR'S ORGANIZ ATION 07/07/2024 [facility] DATE CREATED AUTHOR AUTHOR'S ORGANIZ ATION 07/12/2024 [facility] Goals (unrecognized section and content) Goals may be documented in a n alternate sectionGoals may be documented in an alternate sectionGoals may be documented in an alternate sectionGoals may be documented in an alternate sectionGoals may be documented in an alternate section Care Teams (unrecognized sec tion and content) Team Status: Active Member Role Status Dates Dr. Aisha Kwan MD Family Provider Active Dr. Aisha wKan MD Primary Care Provider Acti ve Team Status: Inactive Member Role Status Dates Dr. Aisha Kwan MD Primary Care Provider Acti ve Dr. Simon Nunez MD Attending Provider, Referring Pro vider Active Gate Agent Relationship Specialty Start Date End Date Aisha Kwan MD [address] [place], [place] [phone] PCP - General Family Medicine 08/01/18 Gate Agent Relationship Specialty Start Date End Date Aisha Kwan MD [address] [place], [place] [phone] PCP - General Family Medicine 08/01/18 Gate Agent Relationship Specialty Start Date End Date Aisha Kwan MD [address] [place] [place], [place] [phone] PCP - General Family Medicine 08/01/18 Gate Agent Relationship Specialty Start Date End Date Aisha Kwan MD [address] [place], [place] [phone] PCP - General Family Medicine 08/01/18 Source Comments (unrecognize d section and content) In the event this informatio n is protected by the Federal Confidentiality of Alcohol and Drug Abuse Patient Records regulations: The Federal rules restrict any use of the information to criminally investigate or prosecute any alcohol or drug abuse patient.[facility] event this information is protected by the Federal Confidentiality of Alcohol and Drug Abuse Patient Records regulations: The Federal rules restrict any use of the information to criminally investigate or prosecute any alcohol or drug abuse patient.[facility] the event this information is protected by the Federal Confidentiality of Alcohol and Drug Abuse Patient Records regulations: The Federal rules restrict any use of the information to criminally investigate or prosecute any alcohol or drug abuse patient.[facility] the event this information is protected by the Federal Confidentiality of Alcohol and Drug Abuse Patient Records regulations: The Federal rules restrict any use of the information to criminally investigate or prosecute any alcohol or drug abuse patient.[facility] Reason for Visit (unrecogniz ed section and content) Reason Comments Consult colonoscopy Reason Comments Results Reason Comments 06-29-2024 [facility] FOR RECORDS PERTAINING TO PATIENTS WHO ARE OR HAVE BEEN ENROLLED IN A CHEMICAL DEPENDENCY/SUBSTANCEABUSE PROGRAM, SOME INFORMATION MAY BE OMITTED. This clinical summary was aggregated from multiple sources. Caution should be exercised in using it in the provision of clinical care. This summary normalizes information from multiple sources, and as a consequence, information in this document may materially change the coding, format and clinical context of patient data. In addition, data may be omitted in some cases. CLINICAL DECISIONS SHOULD BE BASED ON THE PRIMARY CLINICAL RECORDS. [facility]. provides no warranty or guarantee of the accuracy or completeness of information in this document.
[2024-11-13 11:41] LABS: ALB/GLOB Ratio 2.4 RATIO (0.9-2.4); AST(SGOT) 41 U/L (<=37); Alanine Aminotransfer ALT/SGPT 51 U/L (<=46); Albumin, Serum 4.4 g/dL (3.4-4.8); Alkaline Phosphatase 47 U/L (40-129); Anion Gap 10 (5-15); BUN 14 mg/dL (4-19); BUN/Creat Ratio 14.4 RATIO (10-20); Calcium,Total 9.8 mg/dL (7.6-11.0); Carbon Dioxide 25.4 mmol/L (21.0-32.0); Chloride 105 mmol/L (98-108); Cholesterol 172 mg/dL (<=200); Creatinine, Serum 0.99 mg/dL (0.70-1.20); EST Glomerular Filtration Rate 78 (>60); Globulin 1.9 g/dL (2.2-4.2); Glucose 99 mg/dL (70-99); High Density Lipoprotein 49 mg/dL; Low Density Lipoprotein Calc. 96 mg/dL; Potassium 4.2 mmol/L (3.3-5.1); Protein, Total 6.3 g/dL (5.9-8.4); Sodium Level 141 mmol/L (133-145); Total Bilirubin 0.88 mg/dL (0.00-1.30); Triglycerides 138 mg/dL; Very Low Density Lipoprotein 28 mg/dL (5-40); cholesterol:hdl ratio screen 3.53
== END | disposition home or self-care (01) ==
LOC: MTLAB 07:02
PROVIDERS: PCP Family Medicine; Referring Provider Family Medicine; Visit Provider Family Medicine
DX: M10.9 Gout, unspecified (principal); E78.5 Hyperlipidemia, unspecified
CPT/HCPCS: 36415; 80053; 80061; 84550